=== PATIENT | male | born 1985 | race Caucasian/White ===

== ENCOUNTER 2016-10-13 08:49 | Emergency (ER) | payer OTHER ==
[2016-10-13 08:56] VITALS: BMI 26.6
--- NOTE | 2016-10-13 09:12 | PDOC ---
History of Present Illness - History of Present Illness Initial Comments: 10/13/16 16:11 Patient is a 31 year old male with significant medical hx of former opiate addiction and anxiety formerly on klonopin, last klonopin taken 04/2016, who is presenting to the ED for seizure that occurred approximately two hours [employer]. Today the patient woke up and had a seizure, he is unclear the duration, with tongue biting and urinary incontinence. He also complains of some headache and body aches c/w post seizure sensations. Patient reports this episode was not witnessed. The patient notes that his last seizure was two weeks ago, with tonic clonic activity and tongue biting, that was witnessed by mother. Mother states that his last seizure lasted less than five minutes. The patient also had a seizure back in June 2016 and was sent to [facility]. He was admitted, had a workup received an MRI, and everything was found normal. Back in July 2015, the patient also had a seizure work up done at [facility] with an EEG that was negative. The patient denies taking any medication for seizures, including benzodiazepines. Denies alcohol use or recreational drug use. PMD: Eb Arreola MD <Samantha Garcias - Last Filed: 10/13/16 16:11> <Matias Galvez - Last Filed: 10/17/16 02:47> - General Chief Complaint: Seizure Stated Complaint: SEIZURE Time Seen by Provider: 10/13/16 09:09 Past History <Samantha Garcias - Last Filed: 10/13/16 16:11> - Past Medical History Seizures: Yes (not on meds) - Immunization History Immunization Up to Date: Yes - Psycho/Social/Smoking Cessation Hx Anxiety: Yes Suicidal Ideation: No Smoking Status: Yes Smoking History: Never smoked Years of Tobacco Use: 5 Have you smoked in the past 12 months: No Number of Cigarettes Smoked Daily: 0.5 Cigars Per Day: 0 Information on smoking cessation initiated: No Hx Alcohol Use: No Drug/Substance Use Hx: No Substance Use Type: Prescribed <Matias Galvez - Last Filed: 10/17/16 02:47> - Past Medical History Allergies/Adverse Reactions: Allergies Allergy/AdvReac Type Severity Reaction Status Date / Time No Known Allergies Allergy Verified 10/13/16 08:58 Home Medications: Ambulatory Orders Levetiracetam [Keppra -] 500 mg PO BID #42 tablet 10/13/16 Review of Systems - Review of Systems Comments:: 10/13/16 16:11 CONSTITUTIONAL: No reported: Fever, Chills, Diaphoresis, Generalized Weakness, Malaise, Loss of Appetite HEENT: Reported: Tongue Biting No reported: Rhinorrhea, Nasal Congestion, Throat Pain, Throat Swelling, Difficulty Swallowing, Mouth Swelling, Ear Pain, Eye Pain, Visual Changes CARDIOVASCULAR: No reported: Chest Pain, Syncope, Palpitations, Irregular Heart Rate, Lightheadedness, Peripheral Edema RESPIRATORY: No reported: Cough, Shortness of Breath, SOB with Exertion, Orthopnea, Wheezing , Stridor, Hemoptysis GASTROINTESTINAL: No reported: Abdominal pain, Abdominal Distension, Nausea, Vomiting, Diarrhea, Constipation, Melena, Hematochezia GENITOURINARY: No reported: Dysuria, Frequency, Urgency, Hesitancy, Flank Pain, Genital Pain MUSCULOSKELETAL: Reported: Myalgia No reported: Arthralgia, Joint Swelling, Back pain, Neck Pain SKIN: No reported: Rash, Itching, Pallor HEMEATOLOGIC/IMMUNOLOGIC: No reported: Easy Bleeding, Easy Bruising, Lymphadenopathy, Frequent infections ENDOCRINE: No reported: Unexplained Weight Gain, Unexplained Weight Loss, Heat Intolerance , Cold Intolerance NEUROLOGIC: Reported: Seizure, Headache, Incontinence No reported: Focal Weakness, Paresthesias, Vertigo, Lightheadedness, Unsteady Gait, Mental Status Changes PSYCHIATRIC: No reported: Anxiety, Depression <Dieter, - Last Filed: 10/13/16 16:11> *Physical Exam - Vital Signs Last Vital Signs Temp Pulse Resp BP Pulse Ox 98.7 F 88 17 111/67 98 10/13/16 12:30 10/13/16 12:30 10/13/16 12:30 10/13/16 12:30 10/13/16 12:30 - Physical Exam Comments: 10/13/16 16:12 GENERAL: The patient is awake, alert, and fully oriented, Nontoxic - in no acute distress. HEAD: Normocephalic, atraumatic. EYES: extraocular movements intact, sclera anicteric, conjunctiva clear. ENT: Superficial abrasion on the right lateral aspect of his tongue with no active bleeding. Normal voice, Moist mucous membranes. NECK: Normal range of motion, supple LUNGS: Breath sounds equal, clear to auscultation bilaterally. No wheezes, no rhonchi, no rales. HEART: Regular rate and rhythm, without murmur, rub or gallop. ABDOMEN: Soft, nontender, normoactive bowel sounds. No guarding, no rebound.No CVA tenderness EXTREMITIES: Normal range of motion, no edema. No clubbing or cyanosis. No cords , erythema, or tenderness. NEUROLOGICAL: No facial assymetry, Normal speech, PSYCH: Normal mood, normal affect. SKIN: Warm, Dry, normal turgor. NEURO: Mental status: The patient is oriented x3. Cranial nerves: Cranial nerves II through XII are intact Motor: The upper extremities are 5 over 5 in all muscle groups. The lower extremities are 5 over 5 in all muscle groups. No pronator drift. Sensation: Sensation is intact to light touch throughout. Neg romberg Cerebellar: Cafcph-myovur-tdlu is normal in both upper extremities. Heel-knee- camargo is normal in both lower extremities. Reflexes: 2+ and symmetric in the upper and lower extremities. Gait: Normal. Heel and toe walking are normal. Tandem gait is normal. <Samantha Garcias - Last Filed: 10/13/16 16:11> - Vital Signs Last Vital Signs Temp Pulse Resp BP Pulse Ox 98.1 F 117 H 18 120/81 93 L 10/13/16 08:53 10/13/16 08:53 10/13/16 08:53 10/13/16 08:53 10/13/16 08:53 <Matias Galvez - Last Filed: 10/17/16 02:47> Heart Score/ECG Review - ECG Impressions Comment:: 10/13/16 09:57 Twelve-lead EKG was performed and reviewed by me. There is normal sinus rhythm with a normal rate. Rate rate of 96 The axis is normal. The intervals are normal. There is normal R wave progression q wave in III, TWI in lead III <Matias Galvez - Last Filed: 10/17/16 02:47> ED Treatment Course - LABORATORY CBC & Chemistry Diagram: 10/13/16 09:20 10/13/16 09:20 - ADDITIONAL ORDERS Additional order review: Laboratory Results 10/13/16 10/13/16 09:40 09:20 Sodium 139 Potassium 3.6 Chloride 99 Carbon Dioxide 28 Anion Gap 12 BUN 14 Creatinine 0.9 Creat Clearance w eGFR > 60 Random Glucose 97 D Calcium 9.0 Magnesium 2.1 Total Bilirubin 0.7 AST 13 L D ALT 17 D Alkaline Phosphatase 82 Total Protein 7.1 Albumin 4.1 Opiates Screen Negative Methadone Screen Negative Barbiturate Screen Negative Phencyclidine Screen Negative Ur Amphetamines Screen Negative MDMA (Ecstasy) Screen Negative Benzodiazepines Screen Negative Cocaine Screen Negative U Marijuana (THC) Screen Negative 10/13/16 09:20 RBC 5.04 MCV 90.5 MCHC 33.7 RDW 13.8 D MPV 8.0 Neutrophils % 45.1 D Lymphocytes % 36.7 Monocytes % 7.0 Eosinophils % 10.7 H Basophils % 0.5 - Medications Given in the ED: ED Medications Discontinued Medications Generic Name Dose Route Start Last Admin Trade Name Freq PRN Reason Stop Dose Admin Acetaminophen 650 mg 10/13/16 09:51 10/13/16 09:55 Tylenol - PO 10/13/16 09:52 650 mg ONCE ONE Administration Sodium Chloride 1,000 mls @ 1,000 mls/hr 10/13/16 09:14 10/13/16 09:28 Normal Saline - IV 10/13/16 10:13 1,000 mls/hr .Q1H ONE Administration Levetiracetam 500 mg 10/13/16 12:48 10/13/16 13:07 Keppra - PO 10/13/16 12:49 500 mg ONCE ONE Administration <Samantha Garcias - Last Filed: 10/13/16 16:11> - LABORATORY CBC & Chemistry Diagram: 10/13/16 09:20 10/13/16 09:20 <Matias Galvez - Last Filed: 10/17/16 02:47> Medical Decision Making - Medical Decision Making 10/13/16 09:50 31y M hx of anxiety, formerly on Clonapin presents with complaint of seizure. Pt had an unwitnessed seizure this AM but had urinary incontinence and tongue biting. Pt currently at normal mental status. Pt also had several episodes of seizures over the past few months, but pt has been off his klonapin for atleast 5 months. will jackie will pt had MRI in early 2016, will kandis CT head pt also had EEG in 2016 at [facility]. will discuss with neurology regarding possible antiepileptic. A portion of this note was documented by scribe services under my direction. I have reviewed the details of the note, within reason, and agree with the documentation with the following case summary and management plan written by me 10/13/16 12:43 labs unremarakble will consult neuro 10/13/16 12:[address] Barrow would recommend starting keppra 500mg BID will have pt fu with dr. Barrow next week I discussed the physical exam findings, ancillary test results and final diagnoses with the patient. I answered all of the patient's questions. The patient was satisfied with the care received and felt comfortable with the discharge plan and treatment plan. The patient will call their primary care physician within 24 hours to arrange follow-up and will return to the Emergency Department with any new, persistent or worsening symptoms. <Matias Galvez - Last Filed: 10/17/16 02:47> *DC/Admit/Observation/Transfer - Attestations Scribe Attestion: 10/13/16 16:12 Documentation prepared by Samantha Garcias, acting as medical technologist hematology for Matias Galvez MD. <Samantha Garcias - Last Filed: 10/13/16 16:11> - Discharge Dispostion Admit: No <Matias Galvez - Last Filed: 10/17/16 02:47> Diagnosis at time of Disposition: Seizure Qualifiers: Convulsion type: unspecified Qualified Code(s): R56.9 - Unspecified convulsions - Discharge Dispostion Disposition: HOME Condition at time of disposition: Improved - Prescriptions Prescriptions: Levetiracetam [Keppra -] 500 mg PO BID #42 tablet - Referrals Referrals: Eb Lerma [Primary Care Provider] - Anup Barrow DO [Staff Physician] - - Patient Instructions Printed Discharge Instructions: DI for Seizure Disorder -- Adult Additional Instructions: Please start taking your keppra 500 twice daily Follow up with Dr. Barrow next week. CAll to schedule an appointment, he will be expecting to see you. If you have any other seizure activity you need to return to the emergency department. Print Language: SCOTTISH
[2016-10-13] MEDS ORDERED: SODIUM CHLORIDE 1,000 ML IV ONE (09:14)
[2016-10-13] MEDS ORDERED: ACETAMINOPHEN 325 MG TABLET (FP) PO ONE (09:51)
[2016-10-13] MEDS ORDERED: ACETAMINOPHEN 325 MG TABLET (FP) ONE (09:53)
[2016-10-13 09:57] LABS: ALBUMIN 4.1 g/dl (3.4-5.0); ANION GAP 12 (8-16); BILIRUBIN,TOTAL 0.7 mg/dL (0.2-1.0); CO2 28 mmol/L (21-32); COCKROFT - GAULT 122.07; CREATININE 0.9 mg/dL (0.7-1.3); GLUCOSE,RANDOM 97 mg/dL (74-106); MAGNESIUM 2.1 mg/dL (1.8-2.4); SGOT/AST 13 U/L (15-37); SGPT/ALT 17 U/L (12-78); TOT PROT 7.1 g/dl (6.4-8.2)
[2016-10-13 09:58] LABS: ALK PHOS 82 U/L (45-117)
[2016-10-13 10:17] LABS: BASOPHIL 0.5 % (0-2.0); EOSINOPHIL 10.7 % (0-4.5); MCH 30.5 pg (25.7-33.7); MCHC 33.7 g/dl (32.0-35.9); MEAN CELL VOLUME 90.5 fl (80-96); NEUTROPHILS 45.1 % (42.8-82.8); PLATELET COUNT 232 K/MM3 (134-434); RDW 13.8 % (11.9-15.9); WHITE BLOOD COUNT 6.7 K/mm3 (4.0-10.0)
[2016-10-13 11:02] LABS: URINE MARIJUANA THC NEGATIVE ng/ml (CUTOFF=50)
[2016-10-13 12:31] VITALS: BP 111/67; PULSE 88; TEMP 98.7
[2016-10-13] MEDS ORDERED: levETIRAcetam 500 MG TABLET (FP) PO ONE ×2 (12:48→12:56)
--- NOTE | 2016-10-14 11:22 | EKG ---
Test Reason : Blood Pressure : / mmHG Vent. Rate : 096 BPM Atrial Rate : 096 BPM P-R Int : 208 ms QRS Dur : 102 ms QT Int : 350 ms P-R-T Axes : 044 036 019 degrees QTc Int : 442 ms NORMAL SINUS RHYTHM CANNOT RULE OUT ANTERIOR INFARCT , AGE UNDETERMINED ABNORMAL ECG WHEN COMPARED WITH ECG OF 21-DEC-2013 15:41, VENT. RATE HAS INCREASED BY 36 BPM MINIMAL CRITERIA FOR ANTERIOR INFARCT ARE NOW PRESENT QT HAS LENGTHENED Confirmed by BEBA GARZA MD ([id number]) on 10/14/2016 11:22:08 AM Referred By: Confirmed By:BEBA GARZA MD
== END 2016-10-13 13:30 | disposition home or self-care (01) ==
LOC: JER 08:49
PROC: 3E0337Z Introduction of Electrolytic and Water Balance Substance into Peripheral Vein, Percutaneous Approach (ICD-10-PCS; principal; 2016-10-13)
DX: G40.909 Epilepsy, unspecified, not intractable, without status epilepticus (principal)
CPT/HCPCS: 36415; 80053; 80307; 83735; 85025; 93005; 93010; 96360; 99284-25

== ENCOUNTER 2017-01-07 17:48 | Emergency (ER) | payer OTHER ==
[2017-01-07 17:57] VITALS: TEMP 97.9; BMI 26.6
--- NOTE | 2017-01-07 18:36 | PDOC ---
History of Present Illness - History of Present Illness Initial Comments: 01/07/17 18:44 The patient is a 31 year old male, with a significant past medical history of seizure disorder and anxiety, who presents to the emergency department two hours s/p a seizure at home for possibly biting the right side of his tongue. The patient states he thinks he had a seizure two hours ago because he woke up with pain and sojme bleeding to his tongue. He denies any head trauma that he is aware of. He reports having a seizure a couple of days ago without tongue trauma. He states sleeping has also been difficult for the past couple of weeks because of a twitch to the left side of face.He states he is compliant with his Keppra (500 BID). He reports he has seen Dr. Lopez within last month. He also reports he sees a behavioral therapist (Dr. Aquino). He presents today because his seizures have been occurring more frequently. He denies chest pain, shortness of breath, headache and dizziness. He denies fever, chills, nausea, vomit, diarrhea and constipation. He denies dysuria, frequency, urgency and hematuria. Allergies: NKDA <Margarita Gutierrez - Last Filed: 01/07/17 20:17> <Ching Olson - Last Filed: 01/07/17 21:01> - General Chief Complaint: Seizure Stated Complaint: SEIZURE Time Seen by Provider: 01/07/17 18:20 Past History <Margarita Gutierrez - Last Filed: 01/07/17 20:17> - Past Medical History Seizures: Yes (not on meds) - Immunization History Immunization Up to Date: Yes - Psycho/Social/Smoking Cessation Hx Anxiety: Yes Suicidal Ideation: No Smoking Status: Yes Smoking History: Never smoked Years of Tobacco Use: 5 Have you smoked in the past 12 months: No Number of Cigarettes Smoked Daily: 0.5 Cigars Per Day: 0 Information on smoking cessation initiated: No Hx Alcohol Use: No Drug/Substance Use Hx: No Substance Use Type: Prescribed <hCing Olson - Last Filed: 01/07/17 21:01> - Past Medical History Allergies/Adverse Reactions: Allergies Allergy/AdvReac Type Severity Reaction Status Date / Time No Known Allergies Allergy Verified 01/07/17 17:57 Home Medications: Ambulatory Orders Levetiracetam [Keppra -] 500 mg PO BID #42 tablet 10/13/16 Review of Systems - Review of Systems Able to Perform ROS?: Yes Comments:: 01/07/17 18:44 CONSTITUTIONAL: Absent: fever, chills, diaphoresis, generalized weakness, malaise, loss of appetite HEENT: (+) tongue bleeding. Absent: rhinorrhea, nasal congestion, throat pain, throat swelling, difficulty swallowing, mouth swelling, ear pain, eye pain, visual Changes CARDIOVASCULAR: Absent: chest pain, syncope, palpitations, irregular heart rate, lightheadedness , peripheral edema RESPIRATORY: Absent: cough, shortness of breath, dyspnea with exertion, orthopnea, wheezing, stridor, hemoptysis GASTROINTESTINAL: Absent: abdominal pain, abdominal distension, nausea, vomiting, diarrhea, constipation, melena, hematochezia GENITOURINARY: Absent: dysuria, frequency, urgency, hesitancy, hematuria, flank pain, genital pain MUSCULOSKELETAL: Absent: myalgia, arthralgia, joint swelling SKIN: Absent: rash, itching, pallor HEMATOLOGIC/IMMUNOLOGIC: Absent: easy bleeding, easy bruising, lymphadenopathy, frequent infections ENDOCRINE: Absent: unexplained weight gain, unexplained weight loss, heat intolerance, cold intolerance NEUROLOGIC: (+) seizure today. Absent: headache, focal weakness or paresthesias, dizziness, unsteady gait, mental status changes, bladder or bowel incontinence PSYCHIATRIC: Absent: anxiety, depression, suicidal or homicidal ideation, hallucinations. <Margarita Gutierrez - Last Filed: 01/07/17 20:17> *Physical Exam - Vital Signs Last Vital Signs Temp Pulse Resp BP Pulse Ox 97.9 F 102 H 18 123/89 100 01/07/17 17:53 01/07/17 17:53 01/07/17 17:53 01/07/17 17:53 01/07/17 17:53 - Physical Exam Comments: 01/07/17 18:45 GENERAL: Well developed, well nourished. Awake and alert. No acute distress. HEENT: Normocephalic, atraumatic. PERRLA, EOMI. No conjunctival pallor. Sclera are non- icteric. Moist mucous membranes. Oropharynx is clear. NECK: Supple. Full ROM. No JVD. Carotid pulses 2+ and symmetric, without bruits. No thyromegaly. No lymphadenopathy. CARDIOVASCULAR: Regular rate and rhythm. No murmurs, rubs, or gallops. Distal pulses are 2+ and symmetric. PULMONARY: No evidence of respiratory distress. Lungs clear to auscultation bilaterally. No wheezing, rales or rhonchi. ABDOMINAL: Soft. Non-tender. Non-distended. No rebound or guarding. No organomegaly. Normoactive bowel sounds. MUSCULOSKELETAL Normal range of motion at all joints. No bony deformities or tenderness. No CVA tenderness. EXTREMITIES: No cyanosis. No clubbing. No edema. No calf tenderness. SKIN: Warm and dry. Normal capillary refill. No rashes. No jaundice. NEUROLOGICAL: Alert, awake, appropriate. Cranial nerves 2-12 intact. Normoreflexic in the upper and lower extremities. Normal speech. Toes are down-going bilaterally. Gait is normal without ataxia. PSYCHIATRIC: Cooperative. Good eye contact. Appropriate mood and affect. <Margarita Gutierrez - Last Filed: 01/07/17 20:17> - Vital Signs Last Vital Signs Temp Pulse Resp BP Pulse Ox 97.9 F 102 H 18 123/89 100 01/07/17 17:53 01/07/17 17:53 01/07/17 17:53 01/07/17 17:53 01/07/17 17:53 <Ching Olson - Last Filed: 01/07/17 21:01> ED Treatment Course - LABORATORY CBC & Chemistry Diagram: 01/07/17 18:36 01/07/17 18:36 - RADIOLOGY Radiograph Interpretation: 01/07/17 20:17 Dr. Barrow was paged via phone answering service requesting a call back for doctor to doctor consult. <Margarita Gutierrez - Last Filed: 01/07/17 20:17> - LABORATORY CBC & Chemistry Diagram: 01/07/17 18:36 01/07/17 18:36 <Ching Olson - Last Filed: 01/07/17 21:01> Medical Decision Making - Medical Decision Making 01/07/17 20:23 Old male with a history of seizures on Keppra since the case had several seizures in the last week. He said one occurred 2 hours prior to his arrival. He is alert and oriented [address] Rivera, the neurologist, and he takes Keppra 500 mg twice a day He has a history of anxiety disorder and goes to behavioral cognitive therapy twice weekly - he states that he has been feeling much more anxious recently - Keppra level will be sent NIHSS zero -pt has no fever,no headache,no visual changes,no nausea and no vomiting 01/07/17 20:44 I spoke with the covering neurologist Dr Hercules who recommended keppra 750mg BID and seeing Dr Barrow in the office -althought pt has no NV or abd pain ,his LFTs are elevated <Ching Olson - Last Filed: 01/07/17 21:01> *DC/Admit/Observation/Transfer - Attestations Scribe Attestion: 01/07/17 18:46 Documentation prepared by Margarita Gutierrez, acting as medical center manager for Ching Olson MD <Margarita Gutierrez - Last Filed: 01/07/17 20:17> <Ching Olson - Last Filed: 01/07/17 21:01> Diagnosis at time of Disposition: Elevated liver function tests Seizure Qualifiers: Convulsion type: unspecified Qualified Code(s): R56.9 - Unspecified convulsions - Discharge Dispostion Disposition: HOME Condition at time of disposition: Stable - Referrals Referrals: Anup Barrow DO [Primary Care Provider] - - Patient Instructions Printed Discharge Instructions: DI for Seizure Disorder -- Adult Additional Instructions: please increase your keppra to 750mg twice daily call your neurologist and follow up in the office
[2017-01-07 18:54] LABS: BASOPHIL 0.9 % (0-2.0); EOSINOPHIL 6.8 % (0-4.5); MCH 30.6 pg (25.7-33.7); MCHC 33.8 g/dl (32.0-35.9); MEAN CELL VOLUME 90.6 fl (80-96); MEAN PLT VOLUME 9.2 fl (7.5-11.1); NEUTROPHILS 48.4 % (42.8-82.8); PLATELET COUNT 221 K/MM3 (134-434); RDW 15.1 % (11.9-15.9); WHITE BLOOD COUNT 7.2 K/mm3 (4.0-10.0)
[2017-01-07 19:15] LABS: ALBUMIN 4.1 g/dl (3.4-5.0); ALK PHOS 97 U/L (45-117); ANION GAP 9 (8-16); BILIRUBIN,TOTAL 0.8 mg/dL (0.2-1.0); CALCIUM 9.3 mg/dL (8.5-10.1); CO2 27 mmol/L (21-32); CREATININE 0.7 mg/dL (0.7-1.3); GLUCOSE,RANDOM 83 mg/dL (74-106); SGPT/ALT 148 U/L (12-78); TOT PROT 7.4 g/dl (6.4-8.2)
[2017-01-07 19:19] LABS: SGOT/AST 252 U/L (15-37)
[2017-01-07] MEDS ORDERED: levETIRAcetam 500 MG TABLET (FP) PO ONE ×3 (19:21→21:21)
[2017-01-07] MEDS ORDERED: ALPRAZolam 0.25 MG TABLET PO ONE (19:21)
[2017-01-07] MEDS ORDERED: ALPRAZolam 0.25 MG TABLET ONE (19:24)
[2017-01-07 19:28] LABS: URINE APPEARANCE CLEAR; URINE BILIRUBIN NEGATIVE (NEGATIVE); URINE BLOOD NEGATIVE (NEGATIVE); URINE COLOR STRAW; URINE GLUCOSE (UA) NEGATIVE (NEGATIVE); URINE KETONE NEGATIVE (NEGATIVE); URINE LEUK ESTERASE NEGATIVE (NEGATIVE); URINE NITRITE NEGATIVE (NEGATIVE); URINE PROTEIN NEGATIVE (NEGATIVE); URINE UROBILINOGEN NEGATIVE mg/dL (0.2-1.0)
[2017-01-07 19:34] LABS: URINE MARIJUANA THC NEGATIVE ng/ml (CUTOFF=50)
[2017-01-07] MEDS ORDERED: levETIRAcetam 250 MG TABLET (FP) PO ONE (21:07)
[2017-01-07 21:27] VITALS: BP 126/80; PULSE 85
--- NOTE | 2017-01-08 09:14 | EKG ---
Test Reason : Blood Pressure : / mmHG Vent. Rate : 079 BPM Atrial Rate : 079 BPM P-R Int : 176 ms QRS Dur : 098 ms QT Int : 354 ms P-R-T Axes : 041 025 016 degrees QTc Int : 405 ms NORMAL SINUS RHYTHM NONSPECIFIC ST AND T WAVE ABNORMALITY ABNORMAL ECG WHEN COMPARED WITH ECG OF 13-OCT-2016 09:20, NO SIGNIFICANT CHANGE WAS FOUND Confirmed by BEBA GARZA MD ([id number]) on 01/08/2017 9:14:18 AM Referred By: Confirmed By:BEBA GARZA MD
== END 2017-01-07 21:27 | disposition home or self-care (01) ==
LOC: JER 17:48
DX: G40.909 Epilepsy, unspecified, not intractable, without status epilepticus (principal); F41.9 Anxiety disorder, unspecified
CPT/HCPCS: 36415; 80053; 80074; 80307; 81003; 85025; 93005; 93010; 99284-25

== ENCOUNTER 2017-01-15 15:08 | Inpatient (IN) | payer OTHER ==
[2017-01-15] MEDS ORDERED: NALOXONE HCL 0.4 MG/ML VIAL ONE (15:14)
[2017-01-15] MEDS ORDERED: RAPID SEQUENCE INTUBATION KIT NR ONE (15:14)
[2017-01-15] MEDS ORDERED: SODIUM CHLORIDE 1,000 ML IV ONE (15:28)
[2017-01-15] MEDS ORDERED: SODIUM CHLORIDE 2,000 ML IV ONE (15:30)
[2017-01-15 15:33] LABS: BASOPHIL 1.1 % (0-2.0); EOSINOPHIL 5.7 % (0-4.5); MCH 30.7 pg (25.7-33.7); MCHC 33.4 g/dl (32.0-35.9); MEAN CELL VOLUME 91.9 fl (80-96); MEAN PLT VOLUME 8.4 fl (7.5-11.1); NEUTROPHILS 55.7 % (42.8-82.8); PLATELET COUNT 260 K/MM3 (134-434); RDW 15.2 % (11.9-15.9); WHITE BLOOD COUNT 5.2 K/mm3 (4.0-10.0)
--- NOTE | 2017-01-15 15:35 | PDOC ---
Attending Attestation - Resident Resident Name: Fidel Cruz - ED Attending Attestation I have performed the following: I have examined & evaluated the patient, The case was reviewed & discussed with the resident, I agree w/resident's findings & plan, Exceptions are as noted - HPI HPI: 01/15/17 15:32 31y/o M with history of seizures maintained on Keppra but with increasing frequency of seizures lately, last seen on 01/07 for seizure and was being followed closely by Dr. Barrow now presents brought in by EMS unresponsive and intubated. As per mom, so patient this morning and he seemed a bit anxious, subsequently around 11:30 AM he seemed more somnolent, and shortly thereafter she found him on the floor unresponsive. EMS found the patient with constricted pupils, a glucose of 84, and agonal breathing with a O2 sat in the low 80s. They gave him 4 mg of Narcan without improvement, and therefore intubated him and brought him to the ED. Patient remains unresponsive even to painful stimuli, but status post etomidate and succinylcholine. - Physicial Exam PE: 01/15/17 15:35 Blood pressure 100/60, breathing on bands, O2 sat 96%, rectal temp 97.8 and glucose 95, Atraumatic Constricted pupils bilaterally and nonreactive C-collar applied, ET tube in place, initially secured at 26 with right greater than left breath sounds, so was pulled back and secured at 23 at the lips. Improved breath sounds, more symmetric. Abdomen soft No evidence of trauma, neuro exam limited - Critical Care Time Total Critical Care Time: 130 Critical Care Statement: The care of this patient involved high complexity decision making to prevent further life threatening deterioration of the patient 's condition and/or to evalute & treat vital organ system(s) failure or risk of failure. - Medical Decision Making 01/15/17 15:36 Patient seen and evaluated with the resident. I agree with the overall evaluation, assessment, and management with the following summary of visit: 31-year-old male with history of seizures on Keppra presents unresponsive and intubated. Question recurrence of seizure, question toxic mediated, rule out other metabolic process. Patient seen immediately upon arrival Maintained on vent Labs, EKG, Troponin ct head/ct c-spine cxr/pelvis tox workup admission 01/15/17 16:54 labs wnl so far. no leukocytosis, UA clear. trop/lactate pending. Utox + benzo and barbituates. maintained on vent requiring sedation with ativan. CT head/cspine pending, en route now. Will need ICU admission. 01/15/17 17:39 no leukocytosis, normal lactate, chem wnl. Utox + for benzo and margoth. After this info, mom recalls pt was prescribed phenobarb recently by Dr. Barrow. now question toxicity v. withdrawal, seizure, toxic encephalopathy. Pt BP 80s systolic, HR normal. Intermittently combative on ativan drip, requiring boluses. To CT to r/o injury, continue vent and pressure support. Will give 3rd liter bolus then evaluate for need for pressors. 01/15/17 17:59 No gross pathology on my prelim review of the CT head. Lactate normal despite borderline BP. Proceed with ICU admission. 01/15/17 18:02 Accepted for ICU by Dr. Montes. 01/15/17 18:11 [place] elevated [id number], Cr normal, receiving aggressive IVF. Some case studies of rhabdo induced by Keppra? Accepted for admission by Dr. Reyes. Dr. Barrow consulted. Heart Score/ECG Review #1 ECG reviewed & interpreted by me at: 16:46 General ECG Interpretation: Sinus Rhythm, Normal Rate (70), Normal Intervals ( qtc 408), No acute ischemic changes
[2017-01-15] MEDS ORDERED: LORazepam 2 MG/ML SDV VIAL ONE ×3 (15:49→19:59)
[2017-01-15 15:55] LABS: ALBUMIN 3.3 g/dl (3.4-5.0); ANION GAP 3 (8-16); CALCIUM 8.3 mg/dL (8.5-10.1); CO2 29 mmol/L (21-32); GLUCOSE,RANDOM 80 mg/dL (74-106)
[2017-01-15 16:00] LABS: ALK PHOS 68 U/L (45-117); BILIRUBIN,TOTAL 0.2 mg/dL (0.2-1.0); CHOLESTEROL 152 mg/dL (50-200); CREATININE 0.8 mg/dL (0.7-1.3); LDL CHOLESTEROL (ONLY SJRH) 95 mg/dL (5-100); SGPT/ALT 249 U/L (12-78); TOT PROT 6.3 g/dl (6.4-8.2)
[2017-01-15] MEDS ORDERED: LORAZEPAM 40 MG in DEXTROSE 5%-WATER - 100 ML IVPB SCH (16:00)
[2017-01-15 16:01] LABS: SGOT/AST 456 U/L (15-37)
[2017-01-15 16:12] LABS: ALCOHOL < 5.0 mg/dl (0-5)
[2017-01-15 16:13] LABS: URINE APPEARANCE CLEAR; URINE BILIRUBIN NEGATIVE (NEGATIVE); URINE BLOOD 2+ (NEGATIVE); URINE COLOR LTYELLOW; URINE GLUCOSE (UA) NEGATIVE (NEGATIVE); URINE KETONE NEGATIVE (NEGATIVE); URINE LEUK ESTERASE NEGATIVE (NEGATIVE); URINE NITRITE NEGATIVE (NEGATIVE); URINE PROTEIN NEGATIVE (NEGATIVE); URINE UROBILINOGEN NEGATIVE mg/dL (0.2-1.0)
[2017-01-15 16:18] LABS: SALICYLATE < 4.0 mg/dl (0.0-30.0)
[2017-01-15 16:22] LABS: METHEMOGLOBIN 0.7 % (0.4-1.5)
[2017-01-15 16:23] LABS: ARTERIAL BLOOD GAS BASE EXCESS -0.6 meq/l (-2-2); ARTERIAL BLOOD GAS HCO3 24.8 meq/L (22-26); ARTERIAL BLOOD GAS pH 7.35 (7.35-7.45)
[2017-01-15 16:24] LABS: ALLENS TEST POSITIVE; ART PUNCT SITE RIGHT RADIAL; LPM/O2% 100; MECH. VENT. YES; PT. ON O2? YES; TYPE OF O2 VENT; VENT RATE 12; VT/PRESS 450
[2017-01-15 16:43] LABS: URINE MUCUS RARE; URINE RBC 1 /hpf (0-3); URINE WBC 1 /hpf (3-5)
[2017-01-15 16:58] LABS: URINE MARIJUANA THC NEGATIVE ng/ml (CUTOFF=50)
[2017-01-15] MEDS: LORAZEPAM 40 MG in DEXTROSE 5%-WATER - 100 ML IVPB SCH (17:32)
[2017-01-15] MEDS ORDERED: ETOMIDATE 20 MG/10 ML AMPUL IVPUSH ONE ×2 (17:38)
--- NOTE | 2017-01-15 18:05 | PDOC ---
History of Present Illness - General Chief Complaint: Syncope/Near Syncope Stated Complaint: FALL Time Seen by Provider: 01/15/17 15:24 History Source: Parent(s) Exam Limitations: Intubated, Unresponsive - History of Present Illness Initial Comments: 01/15/17 18:08 The patient is a 31M with a PMH of seizures controlled by Keppra who presented to the ED via EMS after being found unresponsive by his mother. The patient's mother provided the history. The mother states that the patient woke up this morning around 8:30/9am and was feeling anxious. The anxiety continued and around 11:30 the patient's mother stepped out to call his father. After returning into the house for the phone call, she found the patient obtunded and unresponsive. Mother is unsure if he takes his medications as prescribed. He was seen on 01/07 here at the hospital and had a negative workup. Past History - Past Medical History Allergies/Adverse Reactions: Allergies Allergy/AdvReac Type Severity Reaction Status Date / Time No Known Allergies Allergy Verified 01/07/17 17:57 Home Medications: Ambulatory Orders Levetiracetam [Keppra -] 500 mg PO BID #42 tablet 10/13/16 Seizures: Yes (not on meds) - Immunization History Immunization Up to Date: Yes - Psycho/Social/Smoking Cessation Hx Anxiety: No Suicidal Ideation: No Smoking Status: Yes Smoking History: Never smoked Years of Tobacco Use: 5 Have you smoked in the past 12 months: No Number of Cigarettes Smoked Daily: 0.5 Cigars Per Day: 0 Information on smoking cessation initiated: No Hx Alcohol Use: No Drug/Substance Use Hx: No Substance Use Type: Prescribed *Physical Exam - Vital Signs Last Vital Signs Temp Pulse Resp BP Pulse Ox 97.8 F 66 14 77/46 100 01/15/17 16:23 01/15/17 16:59 01/15/17 16:59 01/15/17 16:59 01/15/17 16:59 ED Treatment Course - LABORATORY CBC & Chemistry Diagram: 01/15/17 14:49 01/15/17 14:49 - ADDITIONAL ORDERS Additional order review: Laboratory Results 01/15/17 01/15/17 01/15/17 16:10 16:10 16:10 WBC RBC Hgb Hct MCV MCH MCHC RDW Plt Count MPV Neutrophils % Lymphocytes % Monocytes % Eosinophils % Basophils % INR 1.00 Puncture Site ABG pH ABG pCO2 at Pt Temp ABG pO2 at Pt Temp ABG HCO3 ABG O2 Sat (Measured) ABG O2 Content ABG Base Excess Rocky Test Carboxyhemoglobin 0.9 Methemoglobin 0.7 O2 Delivery Device Oxygen Flow Rate Vent Mode Vent Rate Mechanical Rate PEEP Pressure Support Vent Sodium Potassium Chloride Carbon Dioxide Anion Gap BUN Creatinine Creat Clearance w eGFR POC Glucometer Random Glucose Lactic Acid 0.8 Calcium Total Bilirubin AST ALT Alkaline Phosphatase Troponin I B-Natriuretic Peptide Total Protein Albumin Triglycerides Cholesterol Total LDL Cholesterol HDL Cholesterol Urine Color Urine Appearance Urine pH Urine Protein Urine Glucose (UA) Urine Ketones Urine Blood Urine Nitrite Urine Bilirubin Urine Urobilinogen Ur Leukocyte Esterase Urine RBC Urine WBC Urine Mucus Salicylates Opiates Screen Methadone Screen Acetaminophen Barbiturate Screen Phencyclidine Screen Ur Amphetamines Screen MDMA (Ecstasy) Screen Benzodiazepines Screen Cocaine Screen U Marijuana (THC) Screen Alcohol, Quantitative 01/15/17 01/15/17 01/15/17 16:10 15:40 15:40 WBC RBC Hgb Hct MCV MCH MCHC RDW Plt Count MPV Neutrophils % Lymphocytes % Monocytes % Eosinophils % Basophils % INR Puncture Site Right radial ABG pH 7.35 ABG pCO2 at Pt Temp 46.6 H ABG pO2 at Pt Temp 375.0 H* ABG HCO3 24.8 ABG O2 Sat (Measured) 100.0 H* ABG O2 Content 18.3 ABG Base Excess -0.6 Rocky Test Positive Carboxyhemoglobin Methemoglobin O2 Delivery Device Vent Oxygen Flow Rate 100 Vent Mode A/c Vent Rate 12 Mechanical Rate Yes PEEP 5.0 Pressure Support Vent 450 Sodium Potassium Chloride Carbon Dioxide Anion Gap BUN Creatinine Creat Clearance w eGFR POC Glucometer Random Glucose Lactic Acid Calcium Total Bilirubin AST ALT Alkaline Phosphatase Troponin I B-Natriuretic Peptide Total Protein Albumin Triglycerides Cholesterol Total LDL Cholesterol HDL Cholesterol Urine Color Ltyellow Urine Appearance Clear Urine pH 5.0 Urine Protein Negative Urine Glucose (UA) Negative Urine Ketones Negative Urine Blood 2+ H Urine Nitrite Negative Urine Bilirubin Negative Urine Urobilinogen Negative Ur Leukocyte Esterase Negative Urine RBC 1 Urine WBC 1 Urine Mucus Rare Salicylates Opiates Screen Negative Methadone Screen Negative Acetaminophen Barbiturate Screen Positive Phencyclidine Screen Negative Ur Amphetamines Screen Negative MDMA (Ecstasy) Screen Negative Benzodiazepines Screen Positive Cocaine Screen Negative U Marijuana (THC) Screen Negative Alcohol, Quantitative 01/15/17 01/15/17 01/15/17 15:25 15:14 14:49 WBC RBC Hgb Hct MCV MCH MCHC RDW Plt Count MPV Neutrophils % Lymphocytes % Monocytes % Eosinophils % Basophils % INR Puncture Site ABG pH ABG pCO2 at Pt Temp ABG pO2 at Pt Temp ABG HCO3 ABG O2 Sat (Measured) ABG O2 Content ABG Base Excess Rocky Test Carboxyhemoglobin Methemoglobin O2 Delivery Device Oxygen Flow Rate Vent Mode Vent Rate Mechanical Rate PEEP Pressure Support Vent Sodium Potassium Chloride Carbon Dioxide Anion Gap BUN Creatinine Creat Clearance w eGFR POC Glucometer 95.29604 Random Glucose Lactic Acid Calcium Total Bilirubin AST ALT Alkaline Phosphatase Troponin I Cancelled B-Natriuretic Peptide Total Protein Albumin Triglycerides Cholesterol Total LDL Cholesterol HDL Cholesterol Urine Color Urine Appearance Urine pH Urine Protein Urine Glucose (UA) Urine Ketones Urine Blood Urine Nitrite Urine Bilirubin Urine Urobilinogen Ur Leukocyte Esterase Urine RBC Urine WBC Urine Mucus Salicylates < 4.0 Opiates Screen Methadone Screen Acetaminophen < 2.000 L Barbiturate Screen Phencyclidine Screen Ur Amphetamines Screen MDMA (Ecstasy) Screen Benzodiazepines Screen Cocaine Screen U Marijuana (THC) Screen Alcohol, Quantitative < 5.0 01/15/17 01/15/17 14:49 14:49 WBC 5.2 RBC 4.55 Hgb 14.0 Hct 41.8 MCV 91.9 MCH 30.7 MCHC 33.4 RDW 15.2 Plt Count 260 MPV 8.4 Neutrophils % 55.7 Lymphocytes % 30.4 Monocytes % 7.1 Eosinophils % 5.7 H Basophils % 1.1 INR Puncture Site ABG pH ABG pCO2 at Pt Temp ABG pO2 at Pt Temp ABG HCO3 ABG O2 Sat (Measured) ABG O2 Content ABG Base Excess Rocky Test Carboxyhemoglobin Methemoglobin O2 Delivery Device Oxygen Flow Rate Vent Mode Vent Rate Mechanical Rate PEEP Pressure Support Vent Sodium 140 Potassium 4.7 Chloride 108 H Carbon Dioxide 29 Anion Gap 3 L BUN 13 Creatinine 0.8 Creat Clearance w eGFR > 60 POC Glucometer Random Glucose 80 Lactic Acid Calcium 8.3 L Total Bilirubin 0.2 D AST 456 H D ALT 249 H D Alkaline Phosphatase 68 D Troponin I B-Natriuretic Peptide 18.34 Total Protein 6.3 L Albumin 3.3 L Triglycerides 50 Cholesterol 152 Total LDL Cholesterol 95 HDL Cholesterol 42 Urine Color Urine Appearance Urine pH Urine Protein Urine Glucose (UA) Urine Ketones Urine Blood Urine Nitrite Urine Bilirubin Urine Urobilinogen Ur Leukocyte Esterase Urine RBC Urine WBC Urine Mucus Salicylates Opiates Screen Methadone Screen Acetaminophen Barbiturate Screen Phencyclidine Screen Ur Amphetamines Screen MDMA (Ecstasy) Screen Benzodiazepines Screen Cocaine Screen U Marijuana (THC) Screen Alcohol, Quantitative 01/15/17 01/15/17 15:14 14:49 RBC 4.55 MCV 91.9 MCHC 33.4 RDW 15.2 MPV 8.4 Neutrophils % 55.7 Lymphocytes % 30.4 Monocytes % 7.1 Eosinophils % 5.7 H Basophils % 1.1 POC Glucometer 95.06565 - Medications Given in the ED: ED Medications Discontinued Medications Generic Name Dose Route Start Last Admin Trade Name Victor M PRN Reason Stop Dose Admin Etomidate 20 mg 01/15/17 17:38 01/15/17 17:41 Amidate - IVPUSH 01/15/17 17:39 20 mg ONCE ONE Administration Sodium Chloride 2,000 mls @ 1,000 mls/hr 01/15/17 15:30 01/15/17 15:37 Normal Saline - IV 01/15/17 17:29 1,000 mls/hr ONCE ONE Administration Lorazepam 40 mg/ Dextrose 120 mls @ 6 mls/hr 01/15/17 16:00 01/15/17 16:42 IVPB 6 mls/hr TITR BRENDA Administration Protocol 2 MG/HR Lorazepam 2 mg 01/15/17 15:56 01/15/17 16:05 Ativan Injection - IVPUSH 01/15/17 15:57 2 mg ONCE ONE Administration Lorazepam 2 mg 01/15/17 17:38 01/15/17 17:25 Ativan Injection - IVPUSH 01/15/17 17:39 2 mg ONCE ONE Administration Medical Decision Making - Medical Decision Making 01/15/17 18:54 The patient is a 31M found unresponsive by his mother. He arrived to the ED intubated and sedated. Pupils were equal and nonreactive. Breath sounds were bilateral after adjustment of the ET tube. Stabilizing measures were taken including c-spine placed and BP normalization. The patient has 2 L of NS and is finishing his 3rd liter. I will reassess the patient's BP after the third liter and start low dose levophed if his BP has not stabilized. CT head/neck was done. Chest XR and pelvis were complete with no acute pathologies seen. 01/15/17 19:[address] shows no gross abnormalities. Utox positive for benzos and baribiturates. ICU called and Dr. Reyes has accepted admission with Dr. Montes. I will continue to hydrate the patient because of a bump in CK. Cr WNL. *DC/Admit/Observation/Transfer Diagnosis at time of Disposition: Seizure Qualifiers: Convulsion type: unspecified Qualified Code(s): R56.9 - Unspecified convulsions - Discharge Dispostion Admit: Yes - Attestations Physician Attestion: 01/15/17 19:03 I, Dr. Fidel Cruz, attest that this document has been prepared under my direction and personally reviewed by me in its entirety. I further attest, that it accurately reflects all work, treatment, procedures and medical decision -making performed by me.
[2017-01-15 18:27] LABS: CPK 20900 IU/L (39-308); TROPONIN I < 0.02 ng/ml (0.00-0.05)
[2017-01-15] MEDS ORDERED: SODIUM CHLORIDE 0.9% 1000 ML INFUS.BAG IV ONE (19:14)
[2017-01-15] MEDS: PHENYLEPHRINE HCL 20,000 MCG in SODIUM CHLORIDE 248 ML IVPB SCH (19:55)
[2017-01-15] MEDS ORDERED: PROPOFOL 100 ML ONE (20:20)
[2017-01-15] MEDS ORDERED: PHENYLEPHRINE HCL 10 MG/1 ML SINGLE DOSE VIAL ONE (20:22)
[2017-01-15] MEDS ORDERED: LACTATED RINGERS SOLUTION 1,000 ML IV STA (20:27)
[2017-01-15] MEDS: PROPOFOL 100 ML IVPB SCH (20:30)
--- NOTE | 2017-01-15 20:33 | CON.NEURO ---
Consult - History of Present Illness History of Present Illness: new events noted, found unresponsive pt known to me last seen by me on 01/09/17 as outpt HX of seizures since 2007 (since then 5 sz) tri-annual occurrence though lately more often MRI BRAIN in past NL started on keppra 500 BID (2017) no fam HX seizure most recently seen by me last week, has been taking phenibut 500gm, stopped one week ago and withdrawl rxn, no appetite, twitching, --x 3 week; I started him on low dose phenobarbital as as he had suddenly stopped his PHENIBUT OTC supplemnt and felt he was withdrawing (he had no more left and was unable to taper down) ; noted by mom today to be poorly responsive , intubated en route for airway protections, as per nurses mental status and BP has fluctuated , requiring BP support now sedated on propofol - History Source History Provided By: Patient, Significant Other, Medical Record Limitations to Obtaining History: Intubated - Past Medical History [employer]: Yes: Seizure - Alcohol/Substance Use Hx Alcohol Use: No - Smoking History Smoking history: Never smoked Have you smoked in the past 12 months: No Aproximately how many cigarettes per day: 0.5 - Social History Usual Living Arrangement: With Parent Home Medications - Allergies Allergies/Adverse Reactions: Allergies Allergy/AdvReac Type Severity Reaction Status Date / Time No Known Allergies Allergy Verified 01/07/17 17:57 - Home Medications Home Medications: Ambulatory Orders Levetiracetam [Keppra -] 500 mg PO BID #42 tablet 10/13/16 Physical Exam-Neuro Vital Signs: Vital Signs Temperature 97.8 F 01/15/17 16:23 Pulse Rate 72 01/15/17 19:33 Respiratory Rate 12 01/15/17 19:33 Blood Pressure 83/52 01/15/17 19:33 O2 Sat by Pulse Oximetry (%) 100 01/15/17 19:33 Constitutional: Yes: Calm Neck: Yes: Supple (sedated , intubated, pupils pinpoint, limited corneals and dolls sedation effect) , motor : no withdwral, reflxes reduced ) Labs: INR, PTT INR 1.00 (0.82-1.09) 01/15/17 16:10 CBCD WBC 5.2 K/mm3 (4.0-10.0) 01/15/17 14:49 RBC 4.55 M/mm3 (4.00-5.60) 01/15/17 14:49 Hgb 14.0 GM/dL (11.7-16.9) 01/15/17 14:49 Hct 41.8 % (35.4-49) 01/15/17 14:49 MCV 91.9 fl (80-96) 01/15/17 14:49 MCHC 33.4 g/dl (32.0-35.9) 01/15/17 14:49 RDW 15.2 % (11.9-15.9) 01/15/17 14:49 Plt Count 260 K/MM3 (134-434) 01/15/17 14:49 MPV 8.4 fl (7.5-11.1) 01/15/17 14:49 CMP Sodium 140 mmol/L (136-145) 01/15/17 14:49 Potassium 4.7 mmol/L (3.5-5.1) 01/15/17 14:49 Chloride 108 mmol/L (98-107) H 01/15/17 14:49 Carbon Dioxide 29 mmol/L (21-32) 01/15/17 14:49 Anion Gap 3 (8-16) L 01/15/17 14:49 BUN 13 mg/dL (7-18) 01/15/17 14:49 Creatinine 0.8 mg/dL (0.7-1.3) 01/15/17 14:49 Creat Clearance w eGFR > 60 (>60) 01/15/17 14:49 Calcium 8.3 mg/dL (8.5-10.1) L 01/15/17 14:49 Total Bilirubin 0.2 mg/dL (0.2-1.0) D 01/15/17 14:49 AST 456 U/L (15-37) H D 01/15/17 14:49 ALT 249 U/L (12-78) H D 01/15/17 14:49 Alkaline Phosphatase 68 U/L (45-117) D 01/15/17 14:49 Total Protein 6.3 g/dl (6.4-8.2) L 01/15/17 14:49 Albumin 3.3 g/dl (3.4-5.0) L 01/15/17 14:49 CBC,CMP WBC 5.2 K/mm3 (4.0-10.0) 01/15/17 14:49 RBC 4.55 M/mm3 (4.00-5.60) 01/15/17 14:49 Hgb 14.0 GM/dL (11.7-16.9) 01/15/17 14:49 Hct 41.8 % (35.4-49) 01/15/17 14:49 MCV 91.9 fl (80-96) 01/15/17 14:49 MCH 30.7 pg (25.7-33.7) 01/15/17 14:49 MCHC 33.4 g/dl (32.0-35.9) 01/15/17 14:49 RDW 15.2 % (11.9-15.9) 01/15/17 14:49 Plt Count 260 K/MM3 (134-434) 01/15/17 14:49 MPV 8.4 fl (7.5-11.1) 01/15/17 14:49 Neutrophils % 55.7 % (42.8-82.8) 01/15/17 14:49 Lymphocytes % 30.4 % (8-40) 01/15/17 14:49 Monocytes % 7.1 % (3.8-10.2) 01/15/17 14:49 Eosinophils % 5.7 % (0-4.5) H 01/15/17 14:49 Basophils % 1.1 % (0-2.0) 01/15/17 14:49 Sodium 140 mmol/L (136-145) 01/15/17 14:49 Potassium 4.7 mmol/L (3.5-5.1) 01/15/17 14:49 Chloride 108 mmol/L (98-107) H 01/15/17 14:49 Carbon Dioxide 29 mmol/L (21-32) 01/15/17 14:49 Anion Gap 3 (8-16) L 01/15/17 14:49 BUN 13 mg/dL (7-18) 01/15/17 14:49 Creatinine 0.8 mg/dL (0.7-1.3) 01/15/17 14:49 Creat Clearance w eGFR > 60 (>60) 01/15/17 14:49 POC Glucometer 95.33716 UNITS (()) 01/15/17 15:14 Random Glucose 80 mg/dL (74-106) 01/15/17 14:49 Lactic Acid 0.8 mmol/L (0.4-2.0) 01/15/17 16:10 Calcium 8.3 mg/dL (8.5-10.1) L 01/15/17 14:49 Total Bilirubin 0.2 mg/dL (0.2-1.0) D 01/15/17 14:49 AST 456 U/L (15-37) H D 01/15/17 14:49 ALT 249 U/L (12-78) H D 01/15/17 14:49 Alkaline Phosphatase 68 U/L (45-117) D 01/15/17 14:49 Creatine Kinase 16815 IU/L (39-308) H 01/15/17 14:49 Creatine Kinase Index 0.0 % (0.0-5.0) 01/15/17 14:49 CK-MB (CK-2) 15.3 ng/mL (0.5-3.6) H 01/15/17 14:49 Troponin I < 0.02 ng/ml (0.00-0.05) 01/15/17 14:49 B-Natriuretic Peptide 18.34 pg/ml (5-125) 01/15/17 14:49 Total Protein 6.3 g/dl (6.4-8.2) L 01/15/17 14:49 Albumin 3.3 g/dl (3.4-5.0) L 01/15/17 14:49 Triglycerides 50 mg/dL (35-160) 01/15/17 14:49 Cholesterol 152 mg/dL (50-200) 01/15/17 14:49 Total LDL Cholesterol 95 mg/dL (5-100) 01/15/17 14:49 HDL Cholesterol 42 mg/dL (40-60) 01/15/17 14:49 NIH Stroke Scale - Total Score NIH Stroke Scale Score: 0 Imaging - Results Cat Scan: Report Reviewed, Image Reviewed Assessment/Plan Toxic/withdrawl encephalopathy with RHABDO ? PHENIBUT withdrwal, vs phenobarb overdose (only had 7 pills of 16.2--started last sunday, this was given in the hopes of reducing possible withdrawl) vs interaction with benzo (given by [facility] ?) maintain midazolam drip overnight attempt to wean very slowly in AM autonomic support [place] [facility] /poison control to be contacted phenobarb level fluids for elevated CPK will follow closely Dr Barrow [phone]
[2017-01-15] MEDS ORDERED: DOPAMINE 400 MG/D5W - 250 ML IVPB ONE (20:37)
--- NOTE | 2017-01-15 20:56 | HP ---
Admitting History and Physical - Primary Care Physician PCP: Maureen Reyes - Admission History of Present Illness: - HPI HPI: 01/15/17 15:32 31y/o M with history of seizures maintained on Keppra but with increasing frequency of seizures lately, last seen on 01/07 for seizure and was being followed closely by Dr. Barrow now presents brought in by EMS unresponsive and intubated. As per mom, so patient this morning and he seemed a bit anxious, subsequently around 11:30 AM he seemed more somnolent, and shortly thereafter she found him on the floor unresponsive. EMS found the patient with constricted pupils, a glucose of 84, and agonal breathing with a O2 sat in the low 80s. They gave him 4 mg of Narcan without improvement, and therefore intubated him and brought him to the ED. 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 - Smoking History Smoking history: Never smoked Have you smoked in the past 12 months: No Aproximately how many cigarettes per day: 0.5 - Alcohol/Substance Use Hx Alcohol Use: No Home Medications - Allergies Allergies/Adverse Reactions: Allergies Allergy/AdvReac Type Severity Reaction Status Date / Time No Known Allergies Allergy Verified 01/07/17 17:57 - Home Medications Home Medications: Ambulatory Orders Levetiracetam [Keppra -] 500 mg PO BID #42 tablet 10/13/16 Physical Examination Vital Signs: Vital Signs Temperature 97.8 F 01/15/17 16:23 Pulse Rate 72 01/15/17 19:33 Respiratory Rate 12 01/15/17 19:33 Blood Pressure 83/52 01/15/17 19:33 O2 Sat by Pulse Oximetry (%) 100 01/15/17 19:33 HENT: Yes: Other (neck collar) Cardiovascular: Yes: Regular Rate and Rhythm Respiratory: Yes: Rhonchi Gastrointestinal: Yes: Normal Bowel Sounds Extremities: Yes: WNL Edema: No Peripheral Pulses WNL: Yes Neurological: Yes: Other (intubated an sedated) Problem List - Problems (1) Seizure Assessment/Plan: on keppra iv pressors prn Code(s): R56.9 - UNSPECIFIED CONVULSIONS Qualifiers: Convulsion type: unspecified Qualified Code(s): R56.9 - Unspecified convulsions (2) Elevated liver function tests Assessment/Plan: will monitor Code(s): R79.89 - OTHER SPECIFIED ABNORMAL FINDINGS OF BLOOD CHEMISTRY (3) Rhabdomyolysis Code(s): M62.82 - RHABDOMYOLYSIS Qualifiers: Rhabdomyolysis type: non-traumatic Qualified Code(s): M62.82 - Rhabdomyolysis Assessment/Plan Laboratory Tests 01/15/17 01/15/17 01/15/17 14:49 14:49 14:49 WBC 5.2 RBC 4.55 Hgb 14.0 Hct 41.8 MCV 91.9 MCH 30.7 MCHC 33.4 RDW 15.2 Plt Count 260 MPV 8.4 Neutrophils % 55.7 Lymphocytes % 30.4 Monocytes % 7.1 Eosinophils % 5.7 H Basophils % 1.1 INR Puncture Site ABG pH ABG pCO2 at Pt Temp ABG pO2 at Pt Temp ABG HCO3 ABG O2 Sat (Measured) ABG O2 Content ABG Base Excess Rocky Test Carboxyhemoglobin Methemoglobin O2 Delivery Device Oxygen Flow Rate Vent Mode Vent Rate Mechanical Rate PEEP Pressure Support Vent Sodium 140 Potassium 4.7 Chloride 108 H Carbon Dioxide 29 Anion Gap 3 L BUN 13 Creatinine 0.8 Creat Clearance w eGFR > 60 POC Glucometer Random Glucose 80 Lactic Acid Calcium 8.3 L Total Bilirubin 0.2 D AST 456 H D ALT 249 H D Alkaline Phosphatase 68 D Creatine Kinase Cancelled Creatine Kinase Index CK-MB (CK-2) Troponin I Cancelled Cancelled B-Natriuretic Peptide 18.34 Total Protein 6.3 L Albumin 3.3 L Triglycerides 50 Cholesterol 152 Total LDL Cholesterol 95 HDL Cholesterol 42 Urine Color Urine Appearance Urine pH Ur Specific [place] Urine Protein Urine Glucose (UA) Urine Ketones Urine Blood Urine Nitrite Urine Bilirubin Urine Urobilinogen Ur Leukocyte Esterase Urine RBC Urine WBC Urine Mucus Salicylates Opiates Screen Methadone Screen Acetaminophen Barbiturate Screen Phencyclidine Screen Ur Amphetamines Screen MDMA (Ecstasy) Screen Benzodiazepines Screen Cocaine Screen U Marijuana (THC) Screen Alcohol, Quantitative 01/15/17 01/15/17 01/15/17 14:49 15:14 15:25 WBC RBC Hgb Hct MCV MCH MCHC RDW Plt Count MPV Neutrophils % Lymphocytes % Monocytes % Eosinophils % Basophils % INR Puncture Site ABG pH ABG pCO2 at Pt Temp ABG pO2 at Pt Temp ABG HCO3 ABG O2 Sat (Measured) ABG O2 Content ABG Base Excess [place] Test Carboxyhemoglobin Methemoglobin O2 Delivery Device Oxygen Flow Rate Vent Mode Vent Rate Mechanical Rate PEEP Pressure Support Vent Sodium Potassium Chloride Carbon Dioxide Anion Gap BUN Creatinine Creat Clearance w eGFR POC Glucometer [id number] Random Glucose Lactic Acid Calcium Total Bilirubin AST ALT Alkaline Phosphatase Creatine Kinase 20858 H Creatine Kinase Index 0.0 CK-MB (CK-2) 15.3 H Troponin I < 0.02 B-Natriuretic Peptide Total Protein Albumin Triglycerides Cholesterol Total LDL Cholesterol HDL Cholesterol Urine Color Urine Appearance Urine pH Ur Specific [place] Urine Protein Urine Glucose (UA) Urine Ketones Urine Blood Urine Nitrite Urine Bilirubin Urine Urobilinogen Ur Leukocyte Esterase Urine RBC Urine WBC Urine Mucus Salicylates < 4.0 Opiates Screen Methadone Screen Acetaminophen < 2.000 L Barbiturate Screen Phencyclidine Screen Ur Amphetamines Screen MDMA (Ecstasy) Screen Benzodiazepines Screen Cocaine Screen U Marijuana (THC) Screen Alcohol, Quantitative < 5.0 01/15/17 01/15/17 01/15/17 15:40 15:40 16:10 WBC RBC Hgb Hct MCV MCH MCHC RDW Plt Count MPV Neutrophils % Lymphocytes % Monocytes % Eosinophils % Basophils % INR Puncture Site Right radial ABG pH 7.35 ABG pCO2 at Pt Temp 46.6 H ABG pO2 at Pt Temp 375.0 H* ABG HCO3 24.8 ABG O2 Sat (Measured) 100.0 H* ABG O2 Content 18.3 ABG Base Excess -0.6 Rocky Test Positive Carboxyhemoglobin Methemoglobin O2 Delivery Device Vent Oxygen Flow Rate 100 Vent Mode A/c Vent Rate 12 Mechanical Rate Yes PEEP 5.0 Pressure Support Vent 450 Sodium Potassium Chloride Carbon Dioxide Anion Gap BUN Creatinine Creat Clearance w eGFR POC Glucometer Random Glucose Lactic Acid Calcium Total Bilirubin AST ALT Alkaline Phosphatase Creatine Kinase Creatine Kinase Index CK-MB (CK-2) Troponin I B-Natriuretic Peptide Total Protein Albumin Triglycerides Cholesterol Total LDL Cholesterol HDL Cholesterol Urine Color Ltyellow Urine Appearance Clear Urine pH 5.0 Ur Specific [place] >= 1.030 H Urine Protein Negative Urine Glucose (UA) Negative Urine Ketones Negative Urine Blood 2+ H Urine Nitrite Negative Urine Bilirubin Negative Urine Urobilinogen Negative Ur Leukocyte Esterase Negative Urine RBC 1 Urine WBC 1 Urine Mucus Rare Salicylates Opiates Screen Negative Methadone Screen Negative Acetaminophen Barbiturate Screen Positive Phencyclidine Screen Negative Ur Amphetamines Screen Negative MDMA (Ecstasy) Screen Negative Benzodiazepines Screen Positive Cocaine Screen Negative U Marijuana (THC) Screen Negative Alcohol, Quantitative 01/15/17 01/15/17 01/15/17 16:10 16:10 16:10 WBC RBC Hgb Hct MCV MCH MCHC RDW Plt Count MPV Neutrophils % Lymphocytes % Monocytes % Eosinophils % Basophils % INR 1.00 Puncture Site ABG pH ABG pCO2 at Pt Temp ABG pO2 at Pt Temp ABG HCO3 ABG O2 Sat (Measured) ABG O2 Content ABG Base Excess [place] Test Carboxyhemoglobin 0.9 Methemoglobin 0.7 O2 Delivery Device Oxygen Flow Rate Vent Mode Vent Rate Mechanical Rate PEEP Pressure Support Vent Sodium Potassium Chloride Carbon Dioxide Anion Gap BUN Creatinine Creat Clearance w eGFR POC Glucometer Random Glucose Lactic Acid 0.8 Calcium Total Bilirubin AST ALT Alkaline Phosphatase Creatine Kinase Creatine Kinase Index CK-MB (CK-2) Troponin I B-Natriuretic Peptide Total Protein Albumin Triglycerides Cholesterol Total LDL Cholesterol HDL Cholesterol Urine Color Urine Appearance Urine pH Ur Specific [place] Urine Protein Urine Glucose (UA) Urine Ketones Urine Blood Urine Nitrite Urine Bilirubin Urine Urobilinogen Ur Leukocyte Esterase Urine RBC Urine WBC Urine Mucus Salicylates Opiates Screen Methadone Screen Acetaminophen Barbiturate Screen Phencyclidine Screen Ur Amphetamines Screen MDMA (Ecstasy) Screen Benzodiazepines Screen Cocaine Screen U Marijuana (THC) Screen Alcohol, Quantitative Active Medications Generic Name Dose Route Start Last Admin Trade Name Freq PRN Reason Stop Dose Admin Lorazepam 40 mg/ Dextrose 120 mls @ 12 mls/hr 01/15/17 17:39 01/15/17 17:32 IVPB 12 mls/hr TITR BRENDA Administration Protocol 4 MG/HR Propofol 100 mls @ 4.8 mls/hr 01/15/17 20:30 Diprivan - IVPB TITR BRENDA Protocol 10 MCG/KG/MIN Phenylephrine HCl 20,000 mcg/ 250 mls @ 75 mls/hr 01/15/17 20:30 Sodium Chloride IVPB ASDIR BRENDA Protocol 100 MCG/MIN Lactated Ringer's 1,000 mls @ 1,000 mls/hr 01/15/17 20:27 Lactated Ringers Solution IV 01/15/17 21:26 ONCE STA Active Medications Generic Name Dose Route Start Last Admin Trade Name Freq PRN Reason Stop Dose Admin Heparin Sodium (Porcine) 5,000 unit 01/16/17 10:00 01/16/17 09:56 Heparin - SQ 5,000 unit BID BRENDA Administration Propofol 100 mls @ 4.8 mls/hr 01/15/17 20:30 01/16/17 12:06 Diprivan - IVPB 0 mcg/kg/min TITR BRENDA Titration Protocol 10 MCG/KG/MIN Phenylephrine HCl 20,000 mcg/ 250 mls @ 75 mls/hr 01/15/17 20:30 01/16/17 12:06 Sodium Chloride IVPB 0 mcg/min ASDIR BRENDA Titration Protocol 100 MCG/MIN Ceftriaxone Sodium 50 mls @ 100 mls/hr 01/15/17 21:00 01/15/17 23:01 Rocephin 1gm Ivpb (Pre-Docked) IVPB 100 mls/hr Q24H BRENDA Administration Famotidine/Sodium Chloride 50 mls @ 100 mls/hr 01/16/17 10:00 01/16/17 09:57 Pepcid 20 Mg Premixed Ivpb - IVPB 100 mls/hr BID BRENDA Administration Levetiracetam 500 mg 01/15/17 22:00 01/16/17 10:02 Keppra Injection - IVPB 500 mg BID BRENDA Administration cc time 60 min
--- NOTE | 2017-01-15 21:09 | CONSULT ---
Consult Consult Specialty:: Pulm/CCM Reason for Consultation:: AMS-found unresponsive at home. Intubated in the field - History of Present Illness Chief Complaint: AMS History of Present Illness: 31yom with PMHx of seizures maintained on Keppra with a recent hospitalization on 01/07 for seizure and being followed closely by Dr. Barrow. As per his mom and Dr Barrow he c/o increasing anxiety which he was treating with an OTC drug called Phenibut which is noted to be a PHILIPP B agonist. As per Dr Barrow he was adviced to wean off this med slowly and was given Phenobarb 16.2 mg x7 to help in that process. As per his mom this am he c/o worsening anxiety and found him later unresponsive on the floor. EMS was called and he was intubated in the field for airway protection. No improvement with Narcan 4mg. In the ED VS HR 90, BP 101/82,RR13, O2 sat 100%, intubated. C-collar applied. No e/o trauma noted.Pupils noted to be constricted and non reactive. Ct head showed no acute pathology. No report of seizure activity reported. Notable labs WBC 5.1, BUN/creat 13/0.8, CK 20,900, AST/ALT 456/249, lact 0.8, trop<0.02. Utox + for benzo and barbituates. Tylenol<2, ETOH<5 salicylate<4. He rec'd 3L fluid bolus for rhabdo and required ativan pushes for agitation and restlessness. Started empirically on Ceftriaxone. He was transferred to ICU for management In the ICU VS 83/52, HR72, O2 sat 100% on FiO2 100% and on Ativan drip. He was restless despite ativan push so started on Propofol and Phenyephrine drips. Dr Barrow was notified and saw patient in ICU. Recommended continue Keppra 500 BID IV. Poison control notified. Recommended supportive care. Also concerned for possible tylenol overdose re eleveted LFTs though may be d/t elevated CK. Recommended load with N-acetylcysteine and monitor LFTs. 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 - Alcohol/Substance Use Hx Alcohol Use: No - Smoking History Smoking history: Never smoked Have you smoked in the past 12 months: No Aproximately how many cigarettes per day: 0.5 Home Medications - Allergies Allergies/Adverse Reactions: Allergies Allergy/AdvReac Type Severity Reaction Status Date / Time No Known Allergies Allergy Verified 01/07/17 17:57 - Home Medications Home Medications: Ambulatory Orders Levetiracetam [Keppra -] 500 mg PO BID #42 tablet 10/13/16 Family Disease History - Family Disease History Family History: Unremarkable Review of Systems Unable to obtain ROS, reason: intubated and sedated Physical Exam Vital Signs: Vital Signs Temperature 97.8 F 01/15/17 16:23 Pulse Rate 72 01/15/17 19:33 Respiratory Rate 12 01/15/17 19:33 Blood Pressure 83/52 01/15/17 19:33 O2 Sat by Pulse Oximetry (%) 100 01/15/17 19:33 Constitutional: Yes: Well Nourished Eyes: Yes: WNL, Other (Puils equal and pinpoint) HENT: Yes: WNL, Normocephalic Neck: Yes: WNL, Supple Cardiovascular: Yes: WNL, Regular Rate and Rhythm Respiratory: Yes: Regular, CTA Bilaterally, Intubated Gastrointestinal: Yes: Soft (non distended, non tender), Hypoactive Bowel Sounds Extremities: Yes: WNL Edema: No Peripheral Pulses WNL: Yes Integumentary: Yes: WNL Labs: ABG Results ABG pH 7.35 (7.35-7.45) 01/15/17 16:10 ABG pCO2 at Pt Temp 46.6 mmHg (35-45) H 01/15/17 16:10 ABG pO2 at Pt Temp 375.0 mmHg (80-100) H* 01/15/17 16:10 ABG HCO3 24.8 meq/L (22-26) 01/15/17 16:10 ABG O2 Sat (Measured) 100.0 % (90-98.9) H* 01/15/17 16:10 ABG O2 Content 18.3 % vol (15-22) 01/15/17 16:10 ABG Base Excess -0.6 meq/l (-2-2) 01/15/17 16:10 CBC,CMP WBC 5.2 K/mm3 (4.0-10.0) 01/15/17 14:49 RBC 4.55 M/mm3 (4.00-5.60) 01/15/17 14:49 Hgb 14.0 GM/dL (11.7-16.9) 01/15/17 14:49 Hct 41.8 % (35.4-49) 01/15/17 14:49 MCV 91.9 fl (80-96) 01/15/17 14:49 MCH 30.7 pg (25.7-33.7) 01/15/17 14:49 MCHC 33.4 g/dl (32.0-35.9) 01/15/17 14:49 RDW 15.2 % (11.9-15.9) 01/15/17 14:49 Plt Count 260 K/MM3 (134-434) 01/15/17 14:49 MPV 8.4 fl (7.5-11.1) 01/15/17 14:49 Neutrophils % 55.7 % (42.8-82.8) 01/15/17 14:49 Lymphocytes % 30.4 % (8-40) 01/15/17 14:49 Monocytes % 7.1 % (3.8-10.2) 01/15/17 14:49 Eosinophils % 5.7 % (0-4.5) H 01/15/17 14:49 Basophils % 1.1 % (0-2.0) 01/15/17 14:49 Sodium 140 mmol/L (136-145) 01/15/17 14:49 Potassium 4.7 mmol/L (3.5-5.1) 01/15/17 14:49 Chloride 108 mmol/L (98-107) H 01/15/17 14:49 Carbon Dioxide 29 mmol/L (21-32) 01/15/17 14:49 Anion Gap 3 (8-16) L 01/15/17 14:49 BUN 13 mg/dL (7-18) 01/15/17 14:49 Creatinine 0.8 mg/dL (0.7-1.3) 01/15/17 14:49 Creat Clearance w eGFR > 60 (>60) 01/15/17 14:49 POC Glucometer 95.68325 UNITS (()) 01/15/17 15:14 Random Glucose 80 mg/dL (74-106) 01/15/17 14:49 Lactic Acid 0.8 mmol/L (0.4-2.0) 01/15/17 16:10 Calcium 8.3 mg/dL (8.5-10.1) L 01/15/17 14:49 Total Bilirubin 0.2 mg/dL (0.2-1.0) D 01/15/17 14:49 AST 456 U/L (15-37) H D 01/15/17 14:49 ALT 249 U/L (12-78) H D 01/15/17 14:49 Alkaline Phosphatase 68 U/L (45-117) D 01/15/17 14:49 Creatine Kinase 39619 IU/L (39-308) H 01/15/17 14:49 Creatine Kinase Index 0.0 % (0.0-5.0) 01/15/17 14:49 CK-MB (CK-2) 15.3 ng/mL (0.5-3.6) H 01/15/17 14:49 Troponin I < 0.02 ng/ml (0.00-0.05) 01/15/17 14:49 B-Natriuretic Peptide 18.34 pg/ml (5-125) 01/15/17 14:49 Total Protein 6.3 g/dl (6.4-8.2) L 01/15/17 14:49 Albumin 3.3 g/dl (3.4-5.0) L 01/15/17 14:49 Triglycerides 50 mg/dL (35-160) 01/15/17 14:49 Cholesterol 152 mg/dL (50-200) 01/15/17 14:49 Total LDL Cholesterol 95 mg/dL (5-100) 01/15/17 14:49 HDL Cholesterol 42 mg/dL (40-60) 01/15/17 14:49 Imaging - Results Chest X-ray: Report Reviewed (clear) X-ray: Report Reviewed Cat Scan: Report Reviewed Problem List - Problems (1) Seizure Code(s): R56.9 - UNSPECIFIED CONVULSIONS Qualifiers: Convulsion type: unspecified Qualified Code(s): R56.9 - Unspecified convulsions Assessment/Plan 31yom with PMHx of seizures, on Keppra with recent c/o worsening anxiety and taking OTC Phenibut a PHILIPP B agonist for management. Now admitted after being found down and intubated in the field 2/2 m/l drug overdosage. Ccb rhabdomyolysis and elevated LFTs. Plan: Neuro: AMS in setting of drug overdose; Hx seizures -Neuro recs appreciated -Maintain sedation to RASS -3-4 with propofol and ativan drip -Wean sedation slowly in am -Consider EEG before d/c sedation -Continue Keppra 500mg BID -Maintain C-collar until awake and can verify no injury GI/Renal: Elevated transaminase and rhabdo in setting of drug over dose vs seizure -Poison control -apprec recs Fluid bolus as needed -Hydrate with LR @150cc/h -Give loading dose NAC 12,516mg (140mg/kg) -Check LFTs prior to next dose; if LFTs rising 4hrs after loading dose give 6, 258mg(70mg/kg) -Cont this dose q4hrs until transaminases are <1000. -Monitor BMP and UOP -Replete electrolytes -NPO CV: Hypotension m/l in setting of sedation -Phenylephrine drip for MAP>65 -Monitor lactate Proph Hep Sq/ H2B
[2017-01-15] MEDS ORDERED: LACTATED RINGERS SOLUTION 1,000 ML IV SCH (21:30)
[2017-01-15 21:35] VITALS: BMI 28.3
[2017-01-15] MEDS: levETIRAcetam 500 MG/5 ML INJECTION VIAL IVPB SCH (23:01)
[2017-01-15] MEDS: CEFTRIAXONE 50 ML IVPB SCH (23:01)
[2017-01-15] MEDS ORDERED: ACETYLCYSTEINE 20% 200MG/ML 30 ML VIAL *FOR ORAL / INH USE ONLY NGT ONE (23:52)
[2017-01-16] MEDS: LORAZEPAM 40 MG in DEXTROSE 5%-WATER - 100 ML IVPB SCH (01:07)
[2017-01-16] MEDS: PROPOFOL 100 ML IVPB SCH ×2 (03:01→10:05)
[2017-01-16 03:50] LABS: ALBUMIN 2.5 g/dl (3.4-5.0); ALK PHOS 55 U/L (45-117); ANION GAP 6 (8-16); BILIRUBIN,TOTAL 0.3 mg/dL (0.2-1.0); CALCIUM 7.5 mg/dL (8.5-10.1); CO2 27 mmol/L (21-32); CREATININE 0.5 mg/dL (0.7-1.3); GLUCOSE,RANDOM 86 mg/dL (74-106); SGPT/ALT 217 U/L (12-78)
[2017-01-16 04:17] LABS: SGOT/AST 217 U/L (15-37)
[2017-01-16 06:23] LABS: BASOPHIL 0.7 % (0-2.0); MCH 30.9 pg (25.7-33.7); MCHC 33.3 g/dl (32.0-35.9); MEAN CELL VOLUME 92.8 fl (80-96); MEAN PLT VOLUME 8.7 fl (7.5-11.1); NEUTROPHILS 60.7 % (42.8-82.8); PLATELET COUNT 268 K/MM3 (134-434); RDW 14.9 % (11.9-15.9); WHITE BLOOD COUNT 9.4 K/mm3 (4.0-10.0)
[2017-01-16 06:43] LABS: TROPONIN I < 0.02 ng/ml (0.00-0.05)
[2017-01-16] MEDS ORDERED: PHENYLEPHRINE HCL 10 MG/1 ML SINGLE DOSE VIAL ONE (06:45)
[2017-01-16 06:49] LABS: CPK 13161 IU/L (39-308)
[2017-01-16 06:54] LABS: ALBUMIN 2.5 g/dl (3.4-5.0); ANION GAP 8 (8-16); CALCIUM 7.8 mg/dL (8.5-10.1); CO2 28 mmol/L (21-32); GLUCOSE,RANDOM 83 mg/dL (74-106); MAGNESIUM 1.8 mg/dL (1.8-2.4); PHOSPHOROUS 3.4 mg/dL (2.5-4.9); SGOT/AST 275 U/L (15-37)
[2017-01-16 06:56] LABS: ALK PHOS 55 U/L (45-117); BILIRUBIN,TOTAL 0.4 mg/dL (0.2-1.0); CREATININE 0.5 mg/dL (0.7-1.3); SGPT/ALT 199 U/L (12-78); TOT PROT 4.6 g/dl (6.4-8.2)
--- NOTE | 2017-01-16 08:59 | PN ---
Progress Note (short form) - Note Progress Note: HPI: pt known to me last seen by me on 01/09/17 as outpt HX of seizures since 2007 (since then 5 sz) tri-annual occurrence though lately more often MRI BRAIN in past NL started on keppra 500 BID (2017) no fam HX seizure most recently seen by me last week, has been taking phenibut 500gm, stopped one week ago and withdrawl rxn, no appetite, twitching, --x 3 week; I started him on low dose phenobarbital as as he had suddenly stopped his PHENIBUT OTC supplemnt and felt he was withdrawing (he had no more left and was unable to taper down) ; noted by mom today to be poorly responsive , intubated en route for airway protections, as per nurses mental status and BP has fluctuated , requiring BP support now sedated on propofol Today FU : no events overnight, sedated and intubated CPkS trending down - History Source History Provided By: Patient, Significant Other, Medical Record Limitations to Obtaining History: Intubated - Past Medical History 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 - Alcohol/Substance Use Hx Alcohol Use: No - Smoking History Smoking history: Never smoked Have you smoked in the past 12 months: No Aproximately how many cigarettes per day: 0.5 - Social History Usual Living Arrangement: With Parent Home Medications - Allergies Allergies/Adverse Reactions: Allergies Allergy/AdvReac Type Severity Reaction Status Date / Time No Known Allergies Allergy Verified 01/07/17 17:57 - Home Medications Home Medications: Ambulatory Orders Levetiracetam [Keppra -] 500 mg PO BID #42 tablet 10/13/16 Physical Exam-Neuro Vital Signs: Vital Signs Temperature 98.6 F 01/16/17 06:00 Pulse Rate 65 01/16/17 06:00 Respiratory Rate 12 01/16/17 07:22 Blood Pressure 110/77 01/16/17 06:00 O2 Sat by Pulse Oximetry (%) 100 01/15/17 21:24 Constitutional: Yes: Calm Neck: Yes: Supple (sedated , intubated, pupils pinpoint, limited corneals and dolls sedation effect) , motor : no withdwral, reflxes reduced ) Labs: INR, PTT INR 1.00 (0.82-1.09) 01/15/17 16:10 CBCD WBC 5.2 K/mm3 (4.0-10.0) 01/15/17 14:49 RBC 4.55 M/mm3 (4.00-5.60) 01/15/17 14:49 Hgb 14.0 GM/dL (11.7-16.9) 01/15/17 14:49 Hct 41.8 % (35.4-49) 01/15/17 14:49 MCV 91.9 fl (80-96) 01/15/17 14:49 MCHC 33.4 g/dl (32.0-35.9) 01/15/17 14:49 RDW 15.2 % (11.9-15.9) 01/15/17 14:49 Plt Count 260 K/MM3 (134-434) 01/15/17 14:49 MPV 8.4 fl (7.5-11.1) 01/15/17 14:49 CMP Sodium 140 mmol/L (136-145) 01/15/17 14:49 Potassium 4.7 mmol/L (3.5-5.1) 01/15/17 14:49 Chloride 108 mmol/L (98-107) H 01/15/17 14:49 Carbon Dioxide 29 mmol/L (21-32) 01/15/17 14:49 Anion Gap 3 (8-16) L 01/15/17 14:49 BUN 13 mg/dL (7-18) 01/15/17 14:49 Creatinine 0.8 mg/dL (0.7-1.3) 01/15/17 14:49 Creat Clearance w eGFR > 60 (>60) 01/15/17 14:49 Calcium 8.3 mg/dL (8.5-10.1) L 01/15/17 14:49 Total Bilirubin 0.2 mg/dL (0.2-1.0) D 01/15/17 14:49 AST 456 U/L (15-37) H D 01/15/17 14:49 ALT 249 U/L (12-78) H D 01/15/17 14:49 Alkaline Phosphatase 68 U/L (45-117) D 01/15/17 14:49 Total Protein 6.3 g/dl (6.4-8.2) L 01/15/17 14:49 Albumin 3.3 g/dl (3.4-5.0) L 01/15/17 14:49 CBC,CMP WBC 5.2 K/mm3 (4.0-10.0) 01/15/17 14:49 RBC 4.55 M/mm3 (4.00-5.60) 01/15/17 14:49 Hgb 14.0 GM/dL (11.7-16.9) 01/15/17 14:49 Hct 41.8 % (35.4-49) 01/15/17 14:49 MCV 91.9 fl (80-96) 01/15/17 14:49 MCH 30.7 pg (25.7-33.7) 01/15/17 14:49 MCHC 33.4 g/dl (32.0-35.9) 01/15/17 14:49 RDW 15.2 % (11.9-15.9) 01/15/17 14:49 Plt Count 260 K/MM3 (134-434) 01/15/17 14:49 MPV 8.4 fl (7.5-11.1) 01/15/17 14:49 Neutrophils % 55.7 % (42.8-82.8) 01/15/17 14:49 Lymphocytes % 30.4 % (8-40) 01/15/17 14:49 Monocytes % 7.1 % (3.8-10.2) 01/15/17 14:49 Eosinophils % 5.7 % (0-4.5) H 01/15/17 14:49 Basophils % 1.1 % (0-2.0) 01/15/17 14:49 Sodium 140 mmol/L (136-145) 01/15/17 14:49 Potassium 4.7 mmol/L (3.5-5.1) 01/15/17 14:49 Chloride 108 mmol/L (98-107) H 01/15/17 14:49 Carbon Dioxide 29 mmol/L (21-32) 01/15/17 14:49 Anion Gap 3 (8-16) L 01/15/17 14:49 BUN 13 mg/dL (7-18) 01/15/17 14:49 Creatinine 0.8 mg/dL (0.7-1.3) 01/15/17 14:49 Creat Clearance w eGFR > 60 (>60) 01/15/17 14:49 POC Glucometer 95.70484 UNITS (()) 01/15/17 15:14 Random Glucose 80 mg/dL (74-106) 01/15/17 14:49 Lactic Acid 0.8 mmol/L (0.4-2.0) 01/15/17 16:10 Calcium 8.3 mg/dL (8.5-10.1) L 01/15/17 14:49 Total Bilirubin 0.2 mg/dL (0.2-1.0) D 01/15/17 14:49 AST 456 U/L (15-37) H D 01/15/17 14:49 ALT 249 U/L (12-78) H D 01/15/17 14:49 Alkaline Phosphatase 68 U/L (45-117) D 01/15/17 14:49 Creatine Kinase 34365 IU/L (39-308) H 01/15/17 14:49 Creatine Kinase Index 0.0 % (0.0-5.0) 01/15/17 14:49 CK-MB (CK-2) 15.3 ng/mL (0.5-3.6) H 01/15/17 14:49 Troponin I < 0.02 ng/ml (0.00-0.05) 01/15/17 14:49 B-Natriuretic Peptide 18.34 pg/ml (5-125) 01/15/17 14:49 Total Protein 6.3 g/dl (6.4-8.2) L 01/15/17 14:49 Albumin 3.3 g/dl (3.4-5.0) L 01/15/17 14:49 Triglycerides 50 mg/dL (35-160) 01/15/17 14:49 Cholesterol 152 mg/dL (50-200) 01/15/17 14:49 Total LDL Cholesterol 95 mg/dL (5-100) 01/15/17 14:49 HDL Cholesterol 42 mg/dL (40-60) 01/15/17 14:49 NIH Stroke Scale - Total Score NIH Stroke Scale Score: 0 Imaging - Results Cat Scan: Report Reviewed, Image Reviewed Assessment/Plan Toxic/withdrawal encephalopathy with RHABDO ? PHENIBUT withdrwal, vs phenobarb overdose (only had 7 pills of 16.2--started last sunday, this was given in the hopes of reducing possible withdrawal) vs interaction with benzo (given by PSY ?) vs breakthrough seizure slow taper of propofol today, maintain KEppra 500BIDIV -will get EEG routine autonomic support phenobarb level /acetaminophen level P fluids for elevated CPK , trending down will follow closely Dr Barrow [phone]
[2017-01-16] MEDS: PHENYLEPHRINE HCL 20,000 MCG in SODIUM CHLORIDE 248 ML IVPB SCH ×2 (09:00→22:29)
[2017-01-16] MEDS: HEPARIN NA (PORCINE) 5,000 UNITS/ML 1ML VIAL SQ SCH ×2 (09:56→22:20)
[2017-01-16] MEDS: FAMOTIDINE 20 MG/50 ML IVPB 50 ML IVPB SCH ×2 (09:57→22:18)
[2017-01-16] MEDS: levETIRAcetam 500 MG/5 ML INJECTION VIAL IVPB SCH ×2 (10:02→22:20)
[2017-01-16] MEDS ORDERED: PT OWN MED DRAWER 7, Y5N ONE (10:21)
[2017-01-16] MEDS ORDERED: SODIUM CHLORIDE 1,000 ML IV STA (10:33)
--- NOTE | 2017-01-16 13:25 | PN ---
Teaching Attending Note Name of Resident: Ruben Royal ATTENDING PHYSICIAN STATEMENT I saw and evaluated the patient. I reviewed the resident's note and discussed the case with the resident. I agree with the resident's findings and plan as documented. SUBJECTIVE: Patient seen and examined in the ICU. Awake and alert on AC Mode of vent. Able to follow commands. On low dose phenylephrine for hemodynamic support. Intake & Output 01/13/17 01/14/17 01/15/17 01/16/17 23:59 23:59 23:59 23:59 Intake Total 2544 Output Total 1600 Balance 944 Weight 197 lb 1.492 oz Last Vital Signs Temp Pulse Resp BP Pulse Ox 98.7 F 78 14 121/84 100 01/16/17 12:00 01/16/17 12:06 01/16/17 12:00 01/16/17 12:06 01/16/17 11:00 Active Medications Heparin Sodium (Porcine) (Heparin -) 5,000 unit SQ BID BRENDA Last Admin: 01/16/17 09:56 Dose: 5,000 unit Propofol (Diprivan -) 100 mls @ 4.8 mls/hr IVPB TITR BRENDA; 10 MCG/KG/MIN PRN Reason: Protocol Last Titration: 01/16/17 12:06 Dose: 0 mcg/kg/min Phenylephrine HCl 20,000 mcg/ (Sodium Chloride) 250 mls @ 75 mls/hr IVPB ASDIR BRENDA; 100 MCG/MIN PRN Reason: Protocol Last Titration: 01/16/17 12:06 Dose: 0 mcg/min Ceftriaxone Sodium (Rocephin 1gm Ivpb (Pre-Docked)) 50 mls @ 100 mls/hr IVPB Q24H BRENDA Last Admin: 01/15/17 23:01 Dose: 100 mls/hr Lactated Ringer's (Lactated Ringers Solution) 1,000 mls @ 150 mls/hr IV ASDIR BRENDA Last Admin: 01/15/17 22:00 Dose: 150 mls/hr Famotidine/Sodium Chloride (Pepcid 20 Mg Premixed Ivpb -) 50 mls @ 100 mls/hr IVPB BID BRENDA Last Admin: 01/16/17 09:57 Dose: 100 mls/hr Levetiracetam (Keppra Injection -) 500 mg IVPB BID BRENDA Last Admin: 01/16/17 10:02 Dose: 500 mg Constitutional: Yes: Intubated, awake and responsive Eyes: Yes: WNL, pupils equal and responsive HENT: Yes: WNL, Normocephalic Neck: Yes: WNL, Supple Cardiovascular: Yes: WNL, Regular Rate and Rhythm Respiratory: Yes: Intubated, clear Gastrointestinal: Yes: Soft, (+) BS, NT Extremities: Yes: WNL Edema: No Peripheral Pulses WNL: Yes Integumentary: Yes: WNL Labs: Laboratory Results - last 24 hr 01/15/17 01/15/17 01/15/17 14:49 14:49 14:49 WBC 5.2 RBC 4.55 Hgb 14.0 Hct 41.8 MCV 91.9 MCH 30.7 MCHC 33.4 RDW 15.2 Plt Count 260 MPV 8.4 Neutrophils % 55.7 Lymphocytes % 30.4 Monocytes % 7.1 Eosinophils % 5.7 H Basophils % 1.1 INR Puncture Site ABG pH ABG pCO2 at Pt Temp ABG pO2 at Pt Temp ABG HCO3 ABG O2 Sat (Measured) ABG O2 Content ABG Base Excess Rocky Test Carboxyhemoglobin Methemoglobin O2 Delivery Device Oxygen Flow Rate Vent Mode Vent Rate Mechanical Rate PEEP Pressure Support Vent Sodium 140 Potassium 4.7 Chloride 108 H Carbon Dioxide 29 Anion Gap 3 L BUN 13 Creatinine 0.8 Creat Clearance w eGFR > 60 POC Glucometer Random Glucose 80 Lactic Acid Calcium 8.3 L Phosphorus Magnesium Total Bilirubin 0.2 D AST 456 H D ALT 249 H D Alkaline Phosphatase 68 D Creatine Kinase Cancelled Creatine Kinase Index CK-MB (CK-2) Troponin I Cancelled Cancelled B-Natriuretic Peptide 18.34 Total Protein 6.3 L Albumin 3.3 L Triglycerides 50 Cholesterol 152 Total LDL Cholesterol 95 HDL Cholesterol 42 Urine Color Urine Appearance Urine pH Ur Specific Minetto Urine Protein Urine Glucose (UA) Urine Ketones Urine Blood Urine Nitrite Urine Bilirubin Urine Urobilinogen Ur Leukocyte Esterase Urine RBC Urine WBC Urine Mucus Salicylates Opiates Screen Methadone Screen Acetaminophen Barbiturate Screen Phencyclidine Screen Ur Amphetamines Screen MDMA (Ecstasy) Screen Benzodiazepines Screen Cocaine Screen U Marijuana (THC) Screen Alcohol, Quantitative 01/15/17 01/15/17 01/15/17 14:49 15:14 15:25 WBC RBC Hgb Hct MCV MCH MCHC RDW Plt Count MPV Neutrophils % Lymphocytes % Monocytes % Eosinophils % Basophils % INR Puncture Site ABG pH ABG pCO2 at Pt Temp ABG pO2 at Pt Temp ABG HCO3 ABG O2 Sat (Measured) ABG O2 Content ABG Base Excess Rocky Test Carboxyhemoglobin Methemoglobin O2 Delivery Device Oxygen Flow Rate Vent Mode Vent Rate Mechanical Rate PEEP Pressure Support Vent Sodium Potassium Chloride Carbon Dioxide Anion Gap BUN Creatinine Creat Clearance w eGFR POC Glucometer 95.00245 Random Glucose Lactic Acid Calcium Phosphorus Magnesium Total Bilirubin AST ALT Alkaline Phosphatase Creatine Kinase 58131 H Creatine Kinase Index 0.0 CK-MB (CK-2) 15.3 H Troponin I < 0.02 B-Natriuretic Peptide Total Protein Albumin Triglycerides Cholesterol Total LDL Cholesterol HDL Cholesterol Urine Color Urine Appearance Urine pH Ur Specific Minetto Urine Protein Urine Glucose (UA) Urine Ketones Urine Blood Urine Nitrite Urine Bilirubin Urine Urobilinogen Ur Leukocyte Esterase Urine RBC Urine WBC Urine Mucus Salicylates < 4.0 Opiates Screen Methadone Screen Acetaminophen < 2.000 L Barbiturate Screen Phencyclidine Screen Ur Amphetamines Screen MDMA (Ecstasy) Screen Benzodiazepines Screen Cocaine Screen U Marijuana (THC) Screen Alcohol, Quantitative < 5.0 01/15/17 01/15/17 01/15/17 15:40 15:40 16:10 WBC RBC Hgb Hct MCV MCH MCHC RDW Plt Count MPV Neutrophils % Lymphocytes % Monocytes % Eosinophils % Basophils % INR Puncture Site Right radial ABG pH 7.35 ABG pCO2 at Pt Temp 46.6 H ABG pO2 at Pt Temp 375.0 H* ABG HCO3 24.8 ABG O2 Sat (Measured) 100.0 H* ABG O2 Content 18.3 ABG Base Excess -0.6 Rocky Test Positive Carboxyhemoglobin Methemoglobin O2 Delivery Device Vent Oxygen Flow Rate 100 Vent Mode A/c Vent Rate 12 Mechanical Rate Yes PEEP 5.0 Pressure Support Vent 450 Sodium Potassium Chloride Carbon Dioxide Anion Gap BUN Creatinine Creat Clearance w eGFR POC Glucometer Random Glucose Lactic Acid Calcium Phosphorus Magnesium Total Bilirubin AST ALT Alkaline Phosphatase Creatine Kinase Creatine Kinase Index CK-MB (CK-2) Troponin I B-Natriuretic Peptide Total Protein Albumin Triglycerides Cholesterol Total LDL Cholesterol HDL Cholesterol Urine Color Ltyellow Urine Appearance Clear Urine pH 5.0 Ur Specific Minetto >= 1.030 H Urine Protein Negative Urine Glucose (UA) Negative Urine Ketones Negative Urine Blood 2+ H Urine Nitrite Negative Urine Bilirubin Negative Urine Urobilinogen Negative Ur Leukocyte Esterase Negative Urine RBC 1 Urine WBC 1 Urine Mucus Rare Salicylates Opiates Screen Negative Methadone Screen Negative Acetaminophen Barbiturate Screen Positive Phencyclidine Screen Negative Ur Amphetamines Screen Negative MDMA (Ecstasy) Screen Negative Benzodiazepines Screen Positive Cocaine Screen Negative U Marijuana (THC) Screen Negative Alcohol, Quantitative 01/15/17 01/15/17 01/15/17 16:10 16:10 16:10 WBC RBC Hgb Hct MCV MCH MCHC RDW Plt Count MPV Neutrophils % Lymphocytes % Monocytes % Eosinophils % Basophils % INR 1.00 Puncture Site ABG pH ABG pCO2 at Pt Temp ABG pO2 at Pt Temp ABG HCO3 ABG O2 Sat (Measured) ABG O2 Content ABG Base Excess Rocky Test Carboxyhemoglobin 0.9 Methemoglobin 0.7 O2 Delivery Device Oxygen Flow Rate Vent Mode Vent Rate Mechanical Rate PEEP Pressure Support Vent Sodium Potassium Chloride Carbon Dioxide Anion Gap BUN Creatinine Creat Clearance w eGFR POC Glucometer Random Glucose Lactic Acid 0.8 Calcium Phosphorus Magnesium Total Bilirubin AST ALT Alkaline Phosphatase Creatine Kinase Creatine Kinase Index CK-MB (CK-2) Troponin I B-Natriuretic Peptide Total Protein Albumin Triglycerides Cholesterol Total LDL Cholesterol HDL Cholesterol Urine Color Urine Appearance Urine pH Ur Specific Minetto Urine Protein Urine Glucose (UA) Urine Ketones Urine Blood Urine Nitrite Urine Bilirubin Urine Urobilinogen Ur Leukocyte Esterase Urine RBC Urine WBC Urine Mucus Salicylates Opiates Screen Methadone Screen Acetaminophen Barbiturate Screen Phencyclidine Screen Ur Amphetamines Screen MDMA (Ecstasy) Screen Benzodiazepines Screen Cocaine Screen U Marijuana (THC) Screen Alcohol, Quantitative 01/16/17 01/16/17 01/16/17 03:00 03:00 05:20 WBC RBC Hgb Hct MCV MCH MCHC RDW Plt Count MPV Neutrophils % Lymphocytes % Monocytes % Eosinophils % Basophils % INR Puncture Site ABG pH ABG pCO2 at Pt Temp ABG pO2 at Pt Temp ABG HCO3 ABG O2 Sat (Measured) ABG O2 Content ABG Base Excess Rocky Test Carboxyhemoglobin Methemoglobin O2 Delivery Device Oxygen Flow Rate Vent Mode Vent Rate Mechanical Rate PEEP Pressure Support Vent Sodium 143 144 Potassium 3.7 D 3.7 Chloride 110 H 108 H Carbon Dioxide 27 28 Anion Gap 6 L 8 BUN 7 D 7 Creatinine 0.5 L D 0.5 L Creat Clearance w eGFR > 60 > 60 POC Glucometer Random Glucose 86 83 Lactic Acid Calcium 7.5 L 7.8 L Phosphorus 3.4 Magnesium 1.8 Total Bilirubin 0.3 D 0.4 D AST 217 H D 275 H D ALT 217 H 199 H Alkaline Phosphatase 55 55 Creatine Kinase 24964 H Creatine Kinase Index 0.0 CK-MB (CK-2) 8.626 H Troponin I < 0.02 B-Natriuretic Peptide Total Protein 5.0 L D 4.6 L Albumin 2.5 L D 2.5 L Triglycerides Cholesterol Total LDL Cholesterol HDL Cholesterol Urine Color Urine Appearance Urine pH Ur Specific Minetto Urine Protein Urine Glucose (UA) Urine Ketones Urine Blood Urine Nitrite Urine Bilirubin Urine Urobilinogen Ur Leukocyte Esterase Urine RBC Urine WBC Urine Mucus Salicylates Opiates Screen Methadone Screen Acetaminophen Barbiturate Screen Phencyclidine Screen Ur Amphetamines Screen MDMA (Ecstasy) Screen Benzodiazepines Screen Cocaine Screen U Marijuana (THC) Screen Alcohol, Quantitative 01/16/17 01/16/17 05:20 05:20 WBC 9.4 D RBC 3.95 L Hgb 12.2 D Hct 36.6 MCV 92.8 MCH 30.9 MCHC 33.3 RDW 14.9 Plt Count 268 MPV 8.7 Neutrophils % 60.7 Lymphocytes % 25.7 Monocytes % 7.9 Eosinophils % 5.0 H Basophils % 0.7 INR Puncture Site ABG pH ABG pCO2 at Pt Temp ABG pO2 at Pt Temp ABG HCO3 ABG O2 Sat (Measured) ABG O2 Content ABG Base Excess Rocky Test Carboxyhemoglobin Methemoglobin O2 Delivery Device Oxygen Flow Rate Vent Mode Vent Rate Mechanical Rate PEEP Pressure Support Vent Sodium Potassium Chloride Carbon Dioxide Anion Gap BUN Creatinine Creat Clearance w eGFR POC Glucometer Random Glucose Lactic Acid Calcium Phosphorus Magnesium Total Bilirubin AST ALT Alkaline Phosphatase Creatine Kinase 45730 H Creatine Kinase Index 0.0 CK-MB (CK-2) 8.797 H Troponin I B-Natriuretic Peptide Total Protein Albumin Triglycerides Cholesterol Total LDL Cholesterol HDL Cholesterol Urine Color Urine Appearance Urine pH Ur Specific Minetto Urine Protein Urine Glucose (UA) Urine Ketones Urine Blood Urine Nitrite Urine Bilirubin Urine Urobilinogen Ur Leukocyte Esterase Urine RBC Urine WBC Urine Mucus Salicylates Opiates Screen Methadone Screen Acetaminophen Barbiturate Screen Phencyclidine Screen Ur Amphetamines Screen MDMA (Ecstasy) Screen Benzodiazepines Screen Cocaine Screen U Marijuana (THC) Screen Alcohol, Quantitative Problem List - Problems (1) Seizure Code(s): R56.9 - UNSPECIFIED CONVULSIONS Qualifiers: Convulsion type: unspecified Qualified Code(s): R56.9 - Unspecified convulsions (2) Acute Respiratory Failure Assessment/Plan Wean to extubate Neuro consult Wean pressors IVF resuscitation Follow LFTs/CPK Stop sedation Aspiration precautions Seizure precautions ICU monitoring Dr Montes Critical care time spent in reviewing chart, evaluating patient and formulating plan 35 min
--- NOTE | 2017-01-16 13:28 | EKG ---
Test Reason : Blood Pressure : / mmHG Vent. Rate : 070 BPM Atrial Rate : 070 BPM P-R Int : 188 ms QRS Dur : 102 ms QT Int : 378 ms P-R-T Axes : 040 026 010 degrees QTc Int : 408 ms NORMAL SINUS RHYTHM SLOW R WAVE PROGRESSION IN LEADS V1-V3 ABNORMAL ECG WHEN COMPARED WITH ECG OF 07-JAN-2017 18:58, NO SIGNIFICANT CHANGE WAS FOUND CORRELATE CLINICALLY Confirmed by LAZARO GARCIA MD ([id number] on 01/16/2017 1:28:19 PM Referred By: Confirmed By:LAZARO GARCIA MD
--- NOTE | 2017-01-16 15:06 | CONSULT ---
Consult Consult Specialty:: infectious diseases Reason for Consultation:: seizure,r/o asp pna - History of Present Illness History of Present Illness: 31M with a PMH of seizures controlled by Keppra who presented after being found unresponsive by his mother. patient was brought to the hospital and patient was in resp distress got intubated and was admitted to the icu. 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 - Alcohol/Substance Use Hx Alcohol Use: No - Smoking History Smoking history: Never smoked Have you smoked in the past 12 months: No Aproximately how many cigarettes per day: 0.5 - Social History Usual Living Arrangement: With Parent Home Medications - Allergies Allergies/Adverse Reactions: Allergies Allergy/AdvReac Type Severity Reaction Status Date / Time No Known Allergies Allergy Verified 01/07/17 17:57 - Home Medications Home Medications: Ambulatory Orders Levetiracetam [Keppra -] 500 mg PO BID #42 tablet 10/13/16 Review of Systems - Review of Systems Constitutional: reports: No Symptoms Eyes: reports: No Symptoms HENT: reports: No Symptoms Neck: reports: No Symptoms Cardiovascular: reports: No Symptoms Respiratory: reports: No Symptoms Gastrointestinal: reports: No Symptoms Genitourinary: reports: No Symptoms Musculoskeletal: reports: No Symptoms Integumentary: reports: No Symptoms Neurological: reports: Other (patient under sedation effect and post seizure effect) Endocrine: reports: No Symptoms Hematology/Lymphatic: reports: No Symptoms Psychiatric: reports: No Symptoms Physical Exam Vital Signs: Vital Signs Temperature 98.5 F 01/16/17 14:00 Pulse Rate 84 01/16/17 14:00 Respiratory Rate 24 01/16/17 14:00 Blood Pressure 107/85 01/16/17 14:00 O2 Sat by Pulse Oximetry (%) 100 01/16/17 11:00 Constitutional: Yes: Well Nourished, No Distress, Calm, Obese Eyes: Yes: Conjunctiva Clear HENT: Yes: Atraumatic Neck: Yes: Supple Cardiovascular: Yes: Regular Rate and Rhythm Respiratory: Yes: Regular, Other (decreased in lower lobes) Gastrointestinal: Yes: Normal Bowel Sounds, Soft Musculoskeletal: Yes: Other Extremities: Yes: WNL Wound/Incision: Yes: Other (patient has some ramsey on the back of the neck-- probably from the neck collar) Neurological: Yes: Alert, Other Psychiatric: Yes: Alert Labs: CBC, BMP 01/16/17 05:20 01/16/17 05:20 Imaging - Results Chest X-ray: Report Reviewed, Image Reviewed Cat Scan: Report Reviewed, Image Reviewed Other: Report Reviewed, Image Reviewed Assessment/Plan Problems (1) Seizure Code(s): R56.9 - UNSPECIFIED CONVULSIONS Qualifiers: Convulsion type: unspecified Qualified Code(s): R56.9 - Unspecified convulsions after evaluating the patient patient is doing well will continue to watch closely plan aspiration precaution continue as per neurology no abx at this time continue to follow labs rest as per icu and neuro rest as per primary cc tim40 min
--- NOTE | 2017-01-16 15:24 | PN ---
Physical Exam: SUBJECTIVE: 31 yo M pmh seizures on keppra w/ worsening anxiety, taking OTC drug phenibut ( PHILIPP analog), per pt, given phenobarbital to help wean off phenibut. This AM found unresponsive on floor and intubated in the field without improvement of narcan. OBJECTIVE: Vital Signs Period Temp Pulse Resp BP Sys/Butler Pulse Ox Last 24 Hr 98.3 F-98.8 F 60-84 12-24 79-121/50-85 100-100 GENERAL: The patient is awake, alert, and not fully oriented, in no acute distress. HEAD: Normal with no signs of trauma. EYES: PERRL, extraocular movements intact, sclera anicteric, conjunctiva clear. No ptosis. ENT: Ears normal, nares patent, oropharynx clear without exudates, moist mucous membranes. NECK: Trachea midline, full range of motion, supple. LUNGS: Breath sounds equal, clear to auscultation bilaterally, no wheezes, no crackles, no accessory muscle use, pt intubated on vent HEART: Regular rate and rhythm, S1, S2 without murmur, rub or gallop. ABDOMEN: Soft, nontender, nondistended, normoactive bowel sounds, no guarding, no rebound, no hepatosplenomegaly, no masses. EXTREMITIES: 2+ pulses, warm, well-perfused, no edema. NEUROLOGICAL: Cranial nerves II through XII grossly intact. Normal speech, gait not observed. PSYCH: Normal mood, normal affect. SKIN: Warm, dry, normal turgor, no rashes or lesions noted Laboratory Results - last 24 hr 01/16/17 01/16/17 01/16/17 03:00 03:00 05:20 WBC RBC Hgb Hct MCV MCH MCHC RDW Plt Count MPV Neutrophils % Lymphocytes % Monocytes % Eosinophils % Basophils % Sodium 143 144 Potassium 3.7 D 3.7 Chloride 110 H 108 H Carbon Dioxide 27 28 Anion Gap 6 L 8 BUN 7 D 7 Creatinine 0.5 L D 0.5 L Creat Clearance w eGFR > 60 > 60 Random Glucose 86 83 Calcium 7.5 L 7.8 L Phosphorus 3.4 Magnesium 1.8 Total Bilirubin 0.3 D 0.4 D AST 217 H D 275 H D ALT 217 H 199 H Alkaline Phosphatase 55 55 Creatine Kinase 69340 H Creatine Kinase Index 0.0 CK-MB (CK-2) 8.626 H Troponin I < 0.02 Total Protein 5.0 L D 4.6 L Albumin 2.5 L D 2.5 L 01/16/17 01/16/17 05:20 05:20 WBC 9.4 D RBC 3.95 L Hgb 12.2 D Hct 36.6 MCV 92.8 MCH 30.9 MCHC 33.3 RDW 14.9 Plt Count 268 MPV 8.7 Neutrophils % 60.7 Lymphocytes % 25.7 Monocytes % 7.9 Eosinophils % 5.0 H Basophils % 0.7 Sodium Potassium Chloride Carbon Dioxide Anion Gap BUN Creatinine Creat Clearance w eGFR Random Glucose Calcium Phosphorus Magnesium Total Bilirubin AST ALT Alkaline Phosphatase Creatine Kinase 20875 H Creatine Kinase Index 0.0 CK-MB (CK-2) 8.797 H Troponin I Total Protein Albumin Active Medications Generic Name Dose Route Start Last Admin Trade Name Freq PRN Reason Stop Dose Admin Heparin Sodium (Porcine) 5,000 unit 01/16/17 10:00 01/16/17 09:56 Heparin - SQ 5,000 unit BID BRENDA Administration Propofol 100 mls @ 4.8 mls/hr 01/15/17 20:30 01/16/17 12:06 Diprivan - IVPB 0 mcg/kg/min TITR BRENDA Titration Protocol 10 MCG/KG/MIN Phenylephrine HCl 20,000 mcg/ 250 mls @ 75 mls/hr 01/15/17 20:30 01/16/17 12:06 Sodium Chloride IVPB 0 mcg/min ASDIR BRENDA Titration Protocol 100 MCG/MIN Ceftriaxone Sodium 50 mls @ 100 mls/hr 01/15/17 21:00 01/15/17 23:01 Rocephin 1gm Ivpb (Pre-Docked) IVPB 100 mls/hr Q24H BRENDA Administration Famotidine/Sodium Chloride 50 mls @ 100 mls/hr 01/16/17 10:00 01/16/17 09:57 Pepcid 20 Mg Premixed Ivpb - IVPB 100 mls/hr BID BRENDA Administration Levetiracetam 500 mg 01/15/17 22:00 01/16/17 10:02 Keppra Injection - IVPB 500 mg BID BRENDA Administration Imaging: CT Head: negative for intracranial pathology ASSESSMENT/PLAN: 31yoM pmh seizures on keppra with respiratory failure likely 2/2 drug overdose or seizure Neuro: agitated pt on vent hx of seizures, pt on phenibut, phenobarbital, Utox -f/u EEG -cont keppra 500mg IV -CT head negative for any intracranial pathology -Utox (+) for benzos/barbs -propofol for sedation while intubation -phenylephrine drip - wean off -seizure precautions [place]: [place] [address] likely 2/2 rhabdo vs drug effect -bolus 2 L NS Pulmonary: pt intubated for respiratory support -d/c propofol and extubate patient -place on venti mask Gastrointestinal: LFTs were elevated likely 2/2 drug use vs hepatitis -Trend LFTs -tylenol negative, no need to give N acetyl cysteine -IV fluids FEN/Proph: -cont famotidine -cont monitoring in ICU Visit type - Emergency Visit Emergency Visit: No - New Patient This patient is new to me today: Yes Date on this admission: 01/16/17 - Critical Care Critical Care patient: Yes Total Critical Care Time (in minutes): 40 Critical Care Statement: The care of this patient involved high complexity decision making to prevent further life threatening deterioration of the patient 's condition and/or to evalute & treat vital organ system(s) failure or risk of failure.
--- NOTE | 2017-01-16 16:48 | PN ---
Progress Note, Physician History of Present Illness: extubated had food doing well - Current Medication List Current Medications: Active Medications Heparin Sodium (Porcine) (Heparin -) 5,000 unit SQ BID [facility] Last Admin: 01/16/17 09:56 Dose: 5,000 unit Propofol (Diprivan -) 100 mls @ 4.8 mls/hr IVPB TITR BRENDA; 10 MCG/KG/MIN PRN Reason: Protocol Last Titration: 01/16/17 12:06 Dose: 0 mcg/kg/min Phenylephrine HCl 20,000 mcg/ (Sodium Chloride) 250 mls @ 75 mls/hr IVPB ASDIR BRENDA; 100 MCG/MIN PRN Reason: Protocol Last Titration: 01/16/17 12:06 Dose: 0 mcg/min Ceftriaxone Sodium (Rocephin 1gm Ivpb (Pre-Docked)) 50 mls @ 100 mls/hr IVPB Q24H [facility] Last Admin: 01/15/17 23:01 Dose: 100 mls/hr Famotidine/Sodium Chloride (Pepcid 20 Mg Premixed Ivpb -) 50 mls @ 100 mls/hr IVPB BID [facility] Last Admin: 01/16/17 09:57 Dose: 100 mls/hr Levetiracetam (Keppra Injection -) 500 mg IVPB BID [facility] Last Admin: 01/16/17 10:02 Dose: 500 mg - Objective Vital Signs: Vital Signs Temperature 98.6 F 01/16/17 14:00 Pulse Rate 102 H 01/16/17 16:00 Respiratory Rate 22 01/16/17 16:00 Blood Pressure 123/88 01/16/17 16:00 O2 Sat by Pulse Oximetry (%) 100 01/16/17 11:00 HENT: Yes: Atraumatic Neck: Yes: Supple Cardiovascular: Yes: Regular Rate and Rhythm Respiratory: Yes: Rhonchi Gastrointestinal: Yes: Normal Bowel Sounds Extremities: Yes: WNL Labs: CBC, BMP 01/16/17 05:20 01/16/17 05:20 INR, PTT INR 1.00 (0.82-1.09) 01/15/17 16:10 Problem List - Problems (1) Seizure Assessment/Plan: on keppra iv pressors prn Code(s): R56.9 - UNSPECIFIED CONVULSIONS Qualifiers: Convulsion type: unspecified Qualified Code(s): R56.9 - Unspecified convulsions (2) Elevated liver function tests Assessment/Plan: vivian monitor Code(s): R79.89 - OTHER SPECIFIED ABNORMAL FINDINGS OF BLOOD CHEMISTRY Assessment/Plan regular diet
--- NOTE | 2017-01-16 17:40 | CON.CARD ---
Consult Consult Specialty:: Cardiology Referred by:: Dr. Reyes Reason for Consultation:: Cardiac evaluation - History of Present Illness Chief Complaint: Post repiratory failure History of Present Illness: Patient is a 31 year old male with underlying history of seizure who presents after being found unresponsive. He was intubated in the field and now extubated this morning in ICU. He is awake and alert. He denies chest pain, shortness of breath or palpitations. He denies paroxysmal nocturnal dyspnea or orthopnea. He denies fever or chills. He denies headache or lightheadedness at this time. He appears somewhat slow in response, but is able to carry a full conversation. Cardiology consultation was called for further evaluation. He denies history of hypertension, hypercholesterolemia, diabetes mellitus or bronchial asthma. He denies history of any cardiac disease. 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 - Alcohol/Substance Use Hx Alcohol Use: No - Smoking History Smoking history: Never smoked Have you smoked in the past 12 months: No Aproximately how many cigarettes per day: 0.5 - Social History Usual Living Arrangement: With Parent Home Medications - Allergies Allergies/Adverse Reactions: Allergies Allergy/AdvReac Type Severity Reaction Status Date / Time No Known Allergies Allergy Verified 01/07/17 17:57 - Home Medications Home Medications: Ambulatory Orders Levetiracetam [Keppra -] 500 mg PO BID #42 tablet 10/13/16 Family Disease History - Family Disease History Family History: Denies Review of Systems - Review of Systems Constitutional: denies: Chills, Fever Cardiovascular: denies: Chest Pain, Palpitations, Shortness of Breath Respiratory: denies: Cough, Hemoptysis, Orthopnea, PND, SOB, SOB on Exertion Gastrointestinal: denies: Abdominal Pain, Constipation, Diarrhea, Melena, Nausea , Rectal Bleeding, Vomiting Musculoskeletal: denies: Joint Pain Neurological: denies: Dizziness, Headache, Seizure, Syncope, Unsteady Gait, Weakness Vital Signs: Vital Signs Temperature 98.6 F 01/16/17 14:00 Pulse Rate 102 H 01/16/17 16:00 Respiratory Rate 22 01/16/17 16:00 Blood Pressure 123/88 01/16/17 16:00 O2 Sat by Pulse Oximetry (%) 100 01/16/17 11:00 Neck: Yes: Supple Respiratory: Yes: Diminished Gastrointestinal: Yes: Normal Bowel Sounds, Soft. No: Tenderness Cardiovascular: Yes: Regular Rate and Rhythm, Tachycardia JVD: No Carotid Bruit: No PMI: Non-Displaced Heart Sounds: Yes: S1, S2. No: Gallop Edema: No - Other Data Labs, Other Data: CBC, BMP 01/16/17 05:20 01/16/17 05:20 INR, PTT INR 1.00 (0.82-1.09) 01/15/17 16:10 Troponin, BNP 01/16/17 03:00 Troponin I < 0.02 Laboratory Results - last 24 hr 01/15/17 01/15/17 01/15/17 14:49 14:49 15:40 WBC RBC Hgb Hct MCV MCH MCHC RDW Plt Count MPV Neutrophils % Lymphocytes % Monocytes % Eosinophils % Basophils % Sodium 140 Potassium 4.7 Chloride 108 H Carbon Dioxide 29 Anion Gap 3 L BUN 13 Creatinine 0.8 Creat Clearance w eGFR > 60 Random Glucose 80 Calcium 8.3 L Phosphorus Magnesium Total Bilirubin 0.2 D AST 456 H D ALT 249 H D Alkaline Phosphatase 68 D Creatine Kinase Cancelled 18995 H Creatine Kinase Index 0.0 CK-MB (CK-2) 15.3 H Troponin I Cancelled < 0.02 B-Natriuretic Peptide 18.34 Total Protein 6.3 L Albumin 3.3 L Triglycerides 50 Cholesterol 152 Total LDL Cholesterol 95 HDL Cholesterol 42 Urine Color Ltyellow Urine Appearance Clear Urine pH 5.0 Ur Specific [place] >= 1.030 H Urine Protein Negative Urine Glucose (UA) Negative Urine Ketones Negative Urine Blood 2+ H Urine Nitrite Negative Urine Bilirubin Negative Urine Urobilinogen Negative Ur Leukocyte Esterase Negative Urine RBC 1 Urine WBC 1 Urine Mucus Rare 01/16/17 01/16/17 01/16/17 03:00 03:00 05:20 WBC RBC Hgb Hct MCV MCH MCHC RDW Plt Count MPV Neutrophils % Lymphocytes % Monocytes % Eosinophils % Basophils % Sodium 143 144 Potassium 3.7 D 3.7 Chloride 110 H 108 H Carbon Dioxide 27 28 Anion Gap 6 L 8 BUN 7 D 7 Creatinine 0.5 L D 0.5 L Creat Clearance w eGFR > 60 > 60 Random Glucose 86 83 Calcium 7.5 L 7.8 L Phosphorus 3.4 Magnesium 1.8 Total Bilirubin 0.3 D 0.4 D AST 217 H D 275 H D ALT 217 H 199 H Alkaline Phosphatase 55 55 Creatine Kinase 07084 H Creatine Kinase Index 0.0 CK-MB (CK-2) 8.626 H Troponin I < 0.02 B-Natriuretic Peptide Total Protein 5.0 L D 4.6 L Albumin 2.5 L D 2.5 L Triglycerides Cholesterol Total LDL Cholesterol HDL Cholesterol Urine Color Urine Appearance Urine pH Ur Specific [place] Urine Protein Urine Glucose (UA) Urine Ketones Urine Blood Urine Nitrite Urine Bilirubin Urine Urobilinogen Ur Leukocyte Esterase Urine RBC Urine WBC Urine Mucus 01/16/17 01/16/17 05:20 05:20 WBC 9.4 D RBC 3.95 L Hgb 12.2 D Hct 36.6 MCV 92.8 MCH 30.9 MCHC 33.3 RDW 14.9 Plt Count 268 MPV 8.7 Neutrophils % 60.7 Lymphocytes % 25.7 Monocytes % 7.9 Eosinophils % 5.0 H Basophils % 0.7 Sodium Potassium Chloride Carbon Dioxide Anion Gap BUN Creatinine Creat Clearance w eGFR Random Glucose Calcium Phosphorus Magnesium Total Bilirubin AST ALT Alkaline Phosphatase Creatine Kinase 50939 H Creatine Kinase Index 0.0 CK-MB (CK-2) 8.797 H Troponin I B-Natriuretic Peptide Total Protein Albumin Triglycerides Cholesterol Total LDL Cholesterol HDL Cholesterol Urine Color Urine Appearance Urine pH Ur Specific [place] Urine Protein Urine Glucose (UA) Urine Ketones Urine Blood Urine Nitrite Urine Bilirubin Urine Urobilinogen Ur Leukocyte Esterase Urine RBC Urine WBC Urine Mucus Sinus rhythm Echo: Pending Imaging - Results Chest X-ray: Report Reviewed Cat Scan: Report Reviewed (Head CT noted) EKG: Report Reviewed Problem List - Problems (1) Seizure Code(s): R56.9 - UNSPECIFIED CONVULSIONS Qualifiers: Convulsion type: unspecified Qualified Code(s): R56.9 - Unspecified convulsions (2) Elevated liver function tests Code(s): R79.89 - OTHER SPECIFIED ABNORMAL FINDINGS OF BLOOD CHEMISTRY (3) Encephalopathy Code(s): G93.40 - ENCEPHALOPATHY, UNSPECIFIED Assessment/Plan 1. Toxic Encephalopathy - slowly improving 2. Post respiratory failure now extubated 3. Seizure disorder 4. Sinus tachycardia 5. Elevated liver function test and CPK - rhabdomyolisis PLAN: 1. Neuro input noted - evaluation in progress 2. Transthoracic echocardiography to assess LV/RV and valvular function 3. Continue Keppra as per Neuro service 4. DVT prophylaxis 5. Follow LFT and CPK - continue hydration Further plans are to follow Guillaume Aquino MD
[2017-01-16] MEDS ORDERED: CEFTRIAXONE 1 GM in DEXTROSE 5%-WATER - 50 ML IVPB SCH (21:27)
[2017-01-16] MEDS ORDERED: DEXTROSE 5%-WATER - 50 ML IVPB ONE (22:09)
[2017-01-16] MEDS ORDERED: cefTRIAXone SODIUM 1 GM VIAL ONE (22:09)
[2017-01-16] MEDS: CEFTRIAXONE 50 ML IVPB SCH (22:29)
--- NOTE | 2017-01-17 08:44 | PN ---
Progress Note (short form) - Note Progress Note: HPI pt known to me last seen by me on 01/09/17 as outpt HX of seizures since 2007 (since then 5 sz) tri-annual occurrence though lately more often MRI BRAIN in past NL started on keppra 500 BID (2017) no fam HX seizure most recently seen by me last week, has been taking phenibut 500gm, stopped one week ago and withdrawl rxn, no appetite, twitching, --x 3 week; I started him on low dose phenobarbital as as he had suddenly stopped his PHENIBUT OTC supplemnt and felt he was withdrawing (he had no more left and was unable to taper down) ; noted by mom today to be poorly responsive , intubated en route for airway protections, as per nurses mental status and BP has fluctuated , requiring BP support Today FU : now extubated , sleepy/groggy but wakes up and is appropriate limited recall of events that lead up to unresponsive states, admits was doing heavy weight training, unaware if he had seizure CPkS trending down, LFTS still elevated - History Source History Provided By: Patient, Significant Other, Medical Record Limitations to Obtaining History: Intubated - 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 - Alcohol/Substance Use Hx Alcohol Use: No - Smoking History Smoking history: Never smoked Have you smoked in the past 12 months: No Aproximately how many cigarettes per day: 0.5 - Social History Usual Living Arrangement: With Parent Home Medications - Allergies Allergies/Adverse Reactions: Allergies Allergy/AdvReac Type Severity Reaction Status Date / Time No Known Allergies Allergy Verified 01/07/17 17:57 - Home Medications Home Medications: Ambulatory Orders Levetiracetam [Keppra -] 500 mg PO BID #42 tablet 10/13/16 Physical Exam-Neuro Vital Signs: Vital Signs Temperature 98.2 F 01/17/17 06:00 Pulse Rate 103 H 01/17/17 06:00 Respiratory Rate 20 01/17/17 06:00 Blood Pressure 123/68 01/17/17 06:00 O2 Sat by Pulse Oximetry (%) 95 01/16/17 21:00 Constitutional: Yes: Calm Neck: Yes: Supple (sedated , intubated, pupils pinpoint, limited corneals and dolls sedation effect) , motor : no withdwral, reflxes reduced ) Labs: INR, PTT INR 1.00 (0.82-1.09) 01/15/17 16:10 CBCD WBC 5.2 K/mm3 (4.0-10.0) 01/15/17 14:49 RBC 4.55 M/mm3 (4.00-5.60) 01/15/17 14:49 Hgb 14.0 GM/dL (11.7-16.9) 01/15/17 14:49 Hct 41.8 % (35.4-49) 01/15/17 14:49 MCV 91.9 fl (80-96) 01/15/17 14:49 MCHC 33.4 g/dl (32.0-35.9) 01/15/17 14:49 RDW 15.2 % (11.9-15.9) 01/15/17 14:49 Plt Count 260 K/MM3 (134-434) 01/15/17 14:49 MPV 8.4 fl (7.5-11.1) 01/15/17 14:49 CMP Sodium 140 mmol/L (136-145) 01/15/17 14:49 Potassium 4.7 mmol/L (3.5-5.1) 01/15/17 14:49 Chloride 108 mmol/L (98-107) H 01/15/17 14:49 Carbon Dioxide 29 mmol/L (21-32) 01/15/17 14:49 Anion Gap 3 (8-16) L 01/15/17 14:49 BUN 13 mg/dL (7-18) 01/15/17 14:49 Creatinine 0.8 mg/dL (0.7-1.3) 01/15/17 14:49 Creat Clearance w eGFR > 60 (>60) 01/15/17 14:49 Calcium 8.3 mg/dL (8.5-10.1) L 01/15/17 14:49 Total Bilirubin 0.2 mg/dL (0.2-1.0) D 01/15/17 14:49 AST 456 U/L (15-37) H D 01/15/17 14:49 ALT 249 U/L (12-78) H D 01/15/17 14:49 Alkaline Phosphatase 68 U/L (45-117) D 01/15/17 14:49 Total Protein 6.3 g/dl (6.4-8.2) L 01/15/17 14:49 Albumin 3.3 g/dl (3.4-5.0) L 01/15/17 14:49 CBC,CMP WBC 5.2 K/mm3 (4.0-10.0) 01/15/17 14:49 RBC 4.55 M/mm3 (4.00-5.60) 01/15/17 14:49 Hgb 14.0 GM/dL (11.7-16.9) 01/15/17 14:49 Hct 41.8 % (35.4-49) 01/15/17 14:49 MCV 91.9 fl (80-96) 01/15/17 14:49 MCH 30.7 pg (25.7-33.7) 01/15/17 14:49 MCHC 33.4 g/dl (32.0-35.9) 01/15/17 14:49 RDW 15.2 % (11.9-15.9) 01/15/17 14:49 Plt Count 260 K/MM3 (134-434) 01/15/17 14:49 MPV 8.4 fl (7.5-11.1) 01/15/17 14:49 Neutrophils % 55.7 % (42.8-82.8) 01/15/17 14:49 Lymphocytes % 30.4 % (8-40) 01/15/17 14:49 Monocytes % 7.1 % (3.8-10.2) 01/15/17 14:49 Eosinophils % 5.7 % (0-4.5) H 01/15/17 14:49 Basophils % 1.1 % (0-2.0) 01/15/17 14:49 Sodium 140 mmol/L (136-145) 01/15/17 14:49 Potassium 4.7 mmol/L (3.5-5.1) 01/15/17 14:49 Chloride 108 mmol/L (98-107) H 01/15/17 14:49 Carbon Dioxide 29 mmol/L (21-32) 01/15/17 14:49 Anion Gap 3 (8-16) L 01/15/17 14:49 BUN 13 mg/dL (7-18) 01/15/17 14:49 Creatinine 0.8 mg/dL (0.7-1.3) 01/15/17 14:49 Creat Clearance w eGFR > 60 (>60) 01/15/17 14:49 POC Glucometer 95.85860 UNITS (()) 01/15/17 15:14 Random Glucose 80 mg/dL (74-106) 01/15/17 14:49 Lactic Acid 0.8 mmol/L (0.4-2.0) 01/15/17 16:10 Calcium 8.3 mg/dL (8.5-10.1) L 01/15/17 14:49 Total Bilirubin 0.2 mg/dL (0.2-1.0) D 01/15/17 14:49 AST 456 U/L (15-37) H D 01/15/17 14:49 ALT 249 U/L (12-78) H D 01/15/17 14:49 Alkaline Phosphatase 68 U/L (45-117) D 01/15/17 14:49 Creatine Kinase 02776 IU/L (39-308) H 01/15/17 14:49 Creatine Kinase Index 0.0 % (0.0-5.0) 01/15/17 14:49 CK-MB (CK-2) 15.3 ng/mL (0.5-3.6) H 01/15/17 14:49 Troponin I < 0.02 ng/ml (0.00-0.05) 01/15/17 14:49 B-Natriuretic Peptide 18.34 pg/ml (5-125) 01/15/17 14:49 Total Protein 6.3 g/dl (6.4-8.2) L 01/15/17 14:49 Albumin 3.3 g/dl (3.4-5.0) L 01/15/17 14:49 Triglycerides 50 mg/dL (35-160) 01/15/17 14:49 Cholesterol 152 mg/dL (50-200) 01/15/17 14:49 Total LDL Cholesterol 95 mg/dL (5-100) 01/15/17 14:49 HDL Cholesterol 42 mg/dL (40-60) 01/15/17 14:49 NIH Stroke Scale - Total Score NIH Stroke Scale Score: 0 Imaging - Results Cat Scan: Report Reviewed, Image Reviewed Assessment/Plan Toxic/withdrawal encephalopathy with RHABDO ? PHENIBUT withdrwal, vs phenobarb overdose (only had 7 pills of 16.2--started last sunday, this was given in the hopes of reducing possible withdrawal) vs breakthrough seizure doing better , now extubated maintain KEppra 500BID PO FU LFTS FU cardiac [facility]RE[facility] Dr [place] [id number]
[2017-01-17] MEDS: levETIRAcetam 500 MG/5 ML INJECTION VIAL IVPB SCH (09:27)
[2017-01-17] MEDS: FAMOTIDINE 20 MG/50 ML IVPB 50 ML IVPB SCH (09:27)
[2017-01-17] MEDS: HEPARIN NA (PORCINE) 5,000 UNITS/ML 1ML VIAL SQ SCH (09:29)
--- NOTE | 2017-01-17 12:31 | PN ---
Progress Note, Physician History of Present Illness: still little oozy does not remember events from yesterday mom in the room clinically better - Current Medication List Current Medications: Active Medications Heparin Sodium (Porcine) (Heparin -) 5,000 unit SQ BID [facility] Last Admin: 01/17/17 09:29 Dose: 5,000 unit Famotidine/Sodium Chloride (Pepcid 20 Mg Premixed Ivpb -) 50 mls @ 100 mls/hr IVPB BID [facility] Last Admin: 01/17/17 09:27 Dose: 100 mls/hr Ceftriaxone Sodium 1 gm/ (Dextrose) 50 mls @ 100 mls/hr IVPB Q24H [facility] Last Admin: 01/16/17 23:33 Dose: 100 mls/hr Levetiracetam (Keppra Injection -) 500 mg IVPB BID [facility] Last Admin: 01/17/17 09:27 Dose: 500 mg - Objective Vital Signs: Vital Signs Temperature 98.4 F 01/17/17 10:00 Pulse Rate 98 H 01/17/17 10:00 Respiratory Rate 20 01/17/17 10:00 Blood Pressure 122/58 01/17/17 10:00 O2 Sat by Pulse Oximetry (%) 95 01/16/17 21:00 Constitutional: Yes: No Distress, Calm Eyes: Yes: Conjunctiva Clear Cardiovascular: Yes: Regular Rate and Rhythm Respiratory: Yes: Regular, CTA Bilaterally Gastrointestinal: Yes: Normal Bowel Sounds, Soft Musculoskeletal: Yes: WNL Extremities: Yes: WNL Neurological: Yes: Alert, Other Psychiatric: Yes: Alert Labs: CBC, BMP 01/16/17 05:20 01/16/17 05:20 INR, PTT INR 1.00 (0.82-1.09) 01/15/17 16:10 Assessment/Plan Problems (1) Seizure Code(s): R56.9 - UNSPECIFIED CONVULSIONS Qualifiers: Convulsion type: unspecified Qualified Code(s): R56.9 - Unspecified convulsions plan continue current mgmt spoke wiht mom continue as per neuro rest as per primary
--- NOTE | 2017-01-17 12:32 | PN ---
Progress Note, Physician History of Present Illness: No seizures, sensorium improved. - Current Medication List Current Medications: Active Medications Heparin Sodium (Porcine) (Heparin -) 5,000 unit SQ BID [facility] Last Admin: 01/17/17 09:29 Dose: 5,000 unit Famotidine/Sodium Chloride (Pepcid 20 Mg Premixed Ivpb -) 50 mls @ 100 mls/hr IVPB BID [facility] Last Admin: 01/17/17 09:27 Dose: 100 mls/hr Ceftriaxone Sodium 1 gm/ (Dextrose) 50 mls @ 100 mls/hr IVPB Q24H [facility] Last Admin: 01/16/17 23:33 Dose: 100 mls/hr Levetiracetam (Keppra Injection -) 500 mg IVPB BID [facility] Last Admin: 01/17/17 09:27 Dose: 500 mg - Objective Vital Signs: Vital Signs Temperature 98.4 F 01/17/17 10:00 Pulse Rate 98 H 01/17/17 10:00 Respiratory Rate 20 01/17/17 10:00 Blood Pressure 122/58 01/17/17 10:00 O2 Sat by Pulse Oximetry (%) 95 01/16/17 21:00 Constitutional: Yes: No Distress, Calm Neck: Yes: Supple Cardiovascular: Yes: Regular Rate and Rhythm Respiratory: Yes: Regular, Diminished Gastrointestinal: Yes: Normal Bowel Sounds, Soft Edema: No Labs: CBC, BMP 01/16/17 05:20 01/16/17 05:20 INR, PTT INR 1.00 (0.82-1.09) 01/15/17 16:10 Problem List - Problems (1) Encephalopathy Code(s): G93.40 - ENCEPHALOPATHY, UNSPECIFIED (2) Seizure Code(s): R56.9 - UNSPECIFIED CONVULSIONS Qualifiers: Convulsion type: unspecified Qualified Code(s): R56.9 - Unspecified convulsions (3) Elevated liver function tests Code(s): R79.89 - OTHER SPECIFIED ABNORMAL FINDINGS OF BLOOD CHEMISTRY (4) Rhabdomyolysis Code(s): M62.82 - RHABDOMYOLYSIS Qualifiers: Rhabdomyolysis type: non-traumatic Qualified Code(s): M62.82 - Rhabdomyolysis Assessment/Plan 1. Toxic/withdrawal encephalopathy - resolved 2. Post respiratory failure now extubated 3. Seizure disorder 4. Sinus tachycardia resolved 5. Elevated liver function test and CPK - rhabdomyolisis PLAN: 1. Neuro input noted - evaluation in progress 2. F/u Transthoracic echocardiography to assess LV/RV and valvular function 3. Continue Keppra as per Neuro service 4. DVT prophylaxis 5. Trend LFT and CPK - continue hydration, empiric abx course 6. DVT and GI prophylaxis
--- NOTE | 2017-01-17 16:43 | PN ---
Progress Note, Physician History of Present Illness: PULMONARY ALERT,EXTUBATED,NAD,-SOB,-CP , - Current Medication List Current Medications: Active Medications Heparin Sodium (Porcine) (Heparin -) 5,000 unit SQ BID [facility] Last Admin: 01/17/17 09:29 Dose: 5,000 unit Famotidine/Sodium Chloride (Pepcid 20 Mg Premixed Ivpb -) 50 mls @ 100 mls/hr IVPB BID [facility] Last Admin: 01/17/17 09:27 Dose: 100 mls/hr Ceftriaxone Sodium 1 gm/ (Dextrose) 50 mls @ 100 mls/hr IVPB Q24H [facility] Last Admin: 01/16/17 23:33 Dose: 100 mls/hr Levetiracetam (Keppra Injection -) 500 mg IVPB BID [facility] Last Admin: 01/17/17 09:27 Dose: 500 mg - Objective Vital Signs: Vital Signs Temperature 98 F 01/17/17 14:23 Pulse Rate 110 H 01/17/17 14:23 Respiratory Rate 20 01/17/17 14:23 Blood Pressure 128/85 01/17/17 14:23 O2 Sat by Pulse Oximetry (%) 95 01/17/17 09:00 Constitutional: Yes: Well Nourished, Calm Eyes: Yes: WNL HENT: Yes: WNL Cardiovascular: Yes: Regular Rate and Rhythm Respiratory: Yes: CTA Bilaterally Gastrointestinal: Yes: WNL Extremities: Yes: WNL Edema: No Labs: CBC, BMP 01/16/17 05:20 01/16/17 05:20 INR, PTT INR 1.00 (0.82-1.09) 01/15/17 16:10 Assessment/Plan Problem List - Problems (1) Seizure Code(s): R56.9 - UNSPECIFIED CONVULSIONS Qualifiers: Convulsion type: unspecified Qualified Code(s): R56.9 - Unspecified convulsions (2) Acute Respiratory Failure Assessment/Plan CONTINUE CURRENT RX NO PULMONARY CONTRAINDICATION FOR DISCHARGE DR CONNER
--- NOTE | 2017-01-17 17:27 | PN ---
Progress Note, Physician History of Present Illness: food doing well - Current Medication List Current Medications: Active Medications Heparin Sodium (Porcine) (Heparin -) 5,000 unit SQ BID [facility] Last Admin: 01/17/17 09:29 Dose: 5,000 unit Famotidine/Sodium Chloride (Pepcid 20 Mg Premixed Ivpb -) 50 mls @ 100 mls/hr IVPB BID [facility] Last Admin: 01/17/17 09:27 Dose: 100 mls/hr Ceftriaxone Sodium 1 gm/ (Dextrose) 50 mls @ 100 mls/hr IVPB Q24H [facility] Last Admin: 01/16/17 23:33 Dose: 100 mls/hr Levetiracetam (Keppra Injection -) 500 mg IVPB BID [facility] Last Admin: 01/17/17 09:27 Dose: 500 mg - Objective Vital Signs: Vital Signs Temperature 98 F 01/17/17 14:23 Pulse Rate 110 H 01/17/17 14:23 Respiratory Rate 20 01/17/17 14:23 Blood Pressure 128/85 01/17/17 14:23 O2 Sat by Pulse Oximetry (%) 95 01/17/17 09:00 Constitutional: Yes: No Distress HENT: Yes: Atraumatic Neck: Yes: Supple Cardiovascular: Yes: Regular Rate and Rhythm Respiratory: Yes: CTA Bilaterally Gastrointestinal: Yes: Normal Bowel Sounds Extremities: Yes: WNL Neurological: Yes: Alert, Oriented Labs: CBC, BMP 01/16/17 05:20 01/16/17 05:20 INR, PTT INR 1.00 (0.82-1.09) 01/15/17 16:10 Problem List - Problems (1) Seizure Assessment/Plan: on po keppra Code(s): R56.9 - UNSPECIFIED CONVULSIONS Qualifiers: Convulsion type: unspecified Qualified Code(s): R56.9 - Unspecified convulsions (2) Elevated liver function tests Code(s): R79.89 - OTHER SPECIFIED ABNORMAL FINDINGS OF BLOOD CHEMISTRY (3) Rhabdomyolysis Code(s): M62.82 - RHABDOMYOLYSIS Qualifiers: Rhabdomyolysis type: non-traumatic Qualified Code(s): M62.82 - Rhabdomyolysis
[2017-01-17 18:48] VITALS: BP 120/77; PULSE 115; TEMP 98.2
== END 2017-01-17 18:59 | disposition home or self-care (01) | DRG 133 ==
LOC: JER 15:08 → JERBED 18:16 → JICU 20:12 → J7W 01-16 20:44
PROVIDERS: ADMIT Internal Medicine; ATTEND Internal Medicine
PROC: 5A1945Z Respiratory Ventilation, 24-96 Consecutive Hours (ICD-10-PCS; principal; 2017-01-15)
DX: J96.90 Respiratory failure, unspecified, unspecified whether with hypoxia or hypercapnia (principal); R79.89 Other specified abnormal findings of blood chemistry; M62.82 Rhabdomyolysis; T42.3X1A Poisoning by barbiturates, accidental (unintentional), initial encounter; G92 Toxic encephalopathy; Y92.89 Other specified places as the place of occurrence of the external cause; G40.802 Other epilepsy, not intractable, without status epilepticus; I95.89 Other hypotension; R00.0 Tachycardia, unspecified
CPT/HCPCS: 36415; 36600; 70450-TC; 71010-TC; 72125-TC; 72170-TC; 80053; 80061; 80307; 81003; 81015; 82375; 82803; 83050; 83605; 83721; 83735; 83880; 84100; 84484; 85025; 85610; 87040; 93005; 93010; 94002; 95816; 99285-25; J1644

== ENCOUNTER 2020-07-20 20:10 | Emergency (ER) | payer OTHER ==
[2020-07-20 20:16] VITALS: BP 123/72; PULSE 97; TEMP 98.2; BMI 26.6
== END 2020-07-20 20:53 | disposition home or self-care (01) ==
LOC: JER 20:10
DX: Z11.52 Encounter for screening for COVID-19 (principal)
CPT/HCPCS: 99283-25; C9803; U0003